=== PATIENT | female | born 1935 | race Caucasian/White ===

== ENCOUNTER 2017-11-12 15:06 | Observation (INO) | payer OTHER, MEDICARE ==
[~2017-11-12] VITALS: Ht 154.9 cm; Wt 78.3 kg
--- NOTE | 2017-11-12 16:00 | DIAGNOSTIC IMAGING REPORT ---
CHEST ONE VIEW PORTABLE CLINICAL HISTORY: Altered mental status and weakness. COMPARISON STUDY: No previous studies for comparison. FINDINGS: There is marked elevation right hemidiaphragm. The heart is normal in size. There is no failure. There is no focal pulmonary consolidation. There are no pleural effusions. Chronic changes involve the right humeral head.[ IMPRESSION: Elevated right hemidiaphragm. No focal pulmonary consolidation. No evidence of failure. Electronically signed by: Tho Reyna M.D. 11/12/2017 3:59 PM Dictated Date/Time: 11/12/2017 3:58 PM
[2017-11-12 16:08] LABS: BASO % 0.5 %; BASO ABS # 0.03 K/uL (0-0.2); EOS % 8.6 %; EOS ABS # 0.51 K/uL (0-0.5); HEMATOCRIT 37.6 % (37-47); HEMOGLOBIN 13.3 g/dL (12.0-16.0); IG# 0.02 K/uL (0.00-0.02); LYMPH % 43.9 %; LYMPH ABS # 2.61 K/uL (1.2-3.4); MEAN CELL VOLUME 93.5 fL (80-100); MEAN CORPUSCULAR HEMOGLOBIN 33.1 pg (25-34); MEAN CORPUSCULAR HGB CONC 35.4 g/dl (32-36); MEAN PLATELET VOLUME 10.3 fL (7.4-10.4); MONO % 6.9 %; MONO ABS # 0.41 K/uL (0.11-0.59); NEUT % 39.8 %; NEUT ABS # 2.37 K/uL (1.4-6.5); PLATELET COUNT 303 K/uL (130-400); RED CELL DISTRIBUTION WIDTH CV 13.5 % (11.5-14.5); RED CELL DISTRIBUTION WIDTH SD 46.3 fL (36.4-46.3); WHITE BLOOD COUNT 5.95 K/uL (4.8-10.8)
[2017-11-12 16:18] LABS: PTT PATIENT 23.7 SECONDS (21.0-31.0)
[2017-11-12] MEDS ORDERED: FENO160T PO (16:21)
[2017-11-12] MEDS ORDERED: DONE1TAB25 PO (16:21)
[2017-11-12] MEDS ORDERED: LEVO75TA5 PO (16:21)
[2017-11-12] MEDS ORDERED: METO100T14 PO (16:21)
[2017-11-12] MEDS ORDERED: GABA-112 PO ×2 (16:21)
[2017-11-12] MEDS ORDERED: FLUT0.15 (16:21)
[2017-11-12] MEDS ORDERED: CYAN10005 PO (16:21)
[2017-11-12] MEDS ORDERED: CETI10TA84 PO (16:21)
[2017-11-12] MEDS ORDERED: FRS/40 PO (16:21)
--- NOTE | 2017-11-12 16:34 | DIAGNOSTIC IMAGING REPORT ---
HEAD WITHOUT CONTRAST (CT) CLINICAL HISTORY: 82 years-old Female with EVALUATE ALTERED MENTAL STATUS/WEAKNESS. Acute weakness with altered mental status TECHNIQUE: Multiple axial CT images of the head were obtained without contrast. A dose lowering technique was utilized adhering to the principles of ALARA. CT DOSE: 537.48 mGy.cm COMPARISON: None. FINDINGS: No acute intracranial hemorrhage, midline shift, intracranial mass, hydrocephalus, territorial ischemia or abnormal extra-axial collection. Moderate atrophy with ex vacuo ventriculomegaly. Senescent calcifications of the lentiform nuclei. Moderate ill-defined low-attenuation about the subcortical, deep and periventricular white matter suggests chronic microvascular ischemic changes. Cerebral vascular calcifications are noted. The calvarium is intact. Mastoid air cells and middle ear cavities are clear. 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 Mild mucosal thickening of the ethmoid air cells. Soft tissues and orbits are unremarkable. Prior bilateral cataract repair. 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 IMPRESSION: 1. No acute intracranial abnormality. 2. Atrophy with chronic microvascular ischemic changes. 3. Mild ethmoid sinus disease. The above report was generated using voice recognition software. It may contain grammatical, syntax or spelling errors. Electronically signed by: Fernandez Arias M.D. 11/12/2017 4:33 PM Dictated Date/Time: 11/12/2017 4:31 PM
[2017-11-12 16:35] LABS: ALBUMIN 4.1 gm/dl (3.4-5.0); ALKALINE PHOSPHATASE 54 U/L (45-117); ALT/SGPT 26 U/L (12-78); AST/SGOT 23 U/L (15-37); BLOOD UREA NITROGEN 23 mg/dl (7-18); CALCIUM 10.5 mg/dl (8.5-10.1); CARBON DIOXIDE 30 mmol/L (21-32); CREATININE 1.58 mg/dl (0.60-1.20); GLUCOSE 110 mg/dl (70-99); POTASSIUM 4.4 mmol/L (3.5-5.1); SODIUM 140 mmol/L (136-145); TOTAL PROTEIN 7.5 gm/dl (6.4-8.2)
--- NOTE | 2017-11-12 18:16 | EMERGENCY ROOM VISIT NOTE ---
History Report prepared by Tima: Tameka Roberson Under the Supervision of: Dr. Ulises Hopper M.D. First contact with patient: 15:22 Chief Complaint: SHORTNESS OF BREATH Stated Complaint: SOB, BAD HEART VALVE, CONFUSION,HYPERTENSION,DIZZY History of Present Illness The patient is an 82 year old female who presents to the Emergency Room with a referral from her physical therapy office today. The patient states that she was at physical therapy for her balance because she has a tendency to fall down. Per family, the patient did not know how to ride a bike properly at physical therapy. The patient states that she was only able to pedal backwards and states that she had to really focus to pedal forwards. Per family, the patient has not been acting like herself in the past 4 days. The family states that she has had worsening shortness of breath, dizziness, and troubles with her balance. Per family, she used to be able to climb 15 stairs before she became short of breath, but states that she is currently unable to walk a short distance without becoming short of breath. The patient denies having fevers, urinary symptoms, coughing more than usual, vomiting, or diarrhea. The patient states that a doctor that she saw in [place] prescribed her medication to help with her forgetfulness. She states that this medication has been helping the forgetfulness. 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 Her family states that she has an appointment with Dr. Do on November [address] Solis on November 19. Source of History: patient, family Onset: today Position: other (generalized) Quality: other (referral) Associated Symptoms: + SOB, + weakness (dizzines, trouble with balance, confusion), No fevers, No chills, No cough (more than usual), No vomiting, No diarrhea, No urinary symptoms Review of Systems See HPI for pertinent positives & negatives. A total of 10 systems reviewed and were otherwise negative. Past Medical & Surgical Medical Problems: (1) Faulty mitral valve Family History Patient reports no known family medical history. Social History Smoking Status: Former Smoker Marital Status: Housing Status: lives with family Current/Historical Medications Scheduled Cyanocobalamin (Vitamin B-12), 1 TAB PO DAILY Donepezil Hydrochloride (Donepezil Hcl), 5 MG PO DAILY Fenofibrate (Tricor), 160 MG PO DAILY Fluticasone Propionate (Nasal) (Flonase Allergy Relief), 1 SPRAY NA DAILY Furosemide (Lasix), 40 MG PO DAILY Gabapentin (Neurontin), 100 MG PO QAM Gabapentin (Neurontin), 200 MG PO QPM Levothyroxine Sodium (Levothyroxine Sodium), 75 MCG PO DAILY Metoprolol Tartrate (Lopressor) (Lopressor), 100 MG PO DAILY Scheduled PRN Cetirizine (Zyrtec), 10 MG PO DAILY PRN for ALLERGY SYMPTOMS Allergies Coded Allergies: Aspirin (Unverified Adverse Reaction, Severe, RASH, 11/12/17) Physical Exam Vital Signs Date Time Temp Pulse Resp B/P (MAP) Pulse Ox O2 Delivery O2 Flow Rate FiO2 11/12/17 16:53 78 16 175/85 98 Room Air 11/12/17 15:42 96 Room Air 11/12/17 15:09 36.4 82 21 177/98 96 Room Air Physical Exam GENERAL: Patient is in no acute distress. HEENT: No acute trauma, normocephalic atraumatic, mucous membranes moist, no nasal congestion, no scleral icterus. NECK: No stridor, no adenopathy, no meningismus, trachea is midline. LUNGS: Clear to auscultation bilaterally, no wheeze, no rhonchi, breath sounds equal. HEART: Somewhat irregular. Mildly tachycardic. No obvious murmur. ABDOMEN: Soft, nontender, bowel sounds positive, no hernias, no peritonitis. EXTREMITIES: No cyanosis or edema, full range of motion of all the joints without pain or difficulty, no signs for acute trauma. NEUROLOGIC: Oriented x 3, no acute motor or sensory deficits, no focal weakness. Hand tremor noted bilaterally. No facial droop or speech slur. No pronator drift or cerebellar dysfunction. SKIN: No rash, no jaundice, no diaphoresis. Medical Decision & Procedures ER Provider Diagnostic Interpretation: Radiology results as stated below per my review and radiologist interpretation: HEAD WITHOUT CONTRAST (CT) CLINICAL HISTORY: 82 years-old Female with EVALUATE ALTERED MENTAL STATUS/WEAKNESS. Acute weakness with altered mental status TECHNIQUE: Multiple axial CT images of the head were obtained without contrast. A dose lowering technique was utilized adhering to the principles of ALARA. CT DOSE: 537.48 mGy.cm COMPARISON: None. FINDINGS: No acute intracranial hemorrhage, midline shift, intracranial mass, hydrocephalus, territorial ischemia or abnormal extra-axial collection. Moderate atrophy with ex vacuo ventriculomegaly. Senescent calcifications of the lentiform nuclei. Moderate ill-defined low-attenuation about the subcortical, deep and periventricular white matter suggests chronic microvascular ischemic changes. Cerebral vascular calcifications are noted. The calvarium is intact. Mastoid air cells and middle ear cavities are clear. 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 Mild mucosal thickening of the ethmoid air cells. Soft tissues and orbits are unremarkable. Prior bilateral cataract repair. 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 IMPRESSION: 1. No acute intracranial abnormality. 2. Atrophy with chronic microvascular ischemic changes. 3. Mild ethmoid sinus disease. The above report was generated using voice recognition software. It may contain grammatical, syntax or spelling errors. Electronically signed by: Fernandez Arias M.D. 11/12/2017 4:33 PM Dictated Date/Time: 11/12/2017 4:31 PM CHEST ONE VIEW PORTABLE CLINICAL HISTORY: Altered mental status and weakness. COMPARISON STUDY: No previous studies for comparison. FINDINGS: There is marked elevation right hemidiaphragm. The heart is normal in size. There is no failure. There is no focal pulmonary consolidation. There are no pleural effusions. Chronic changes involve the right humeral head.[ IMPRESSION: Elevated right hemidiaphragm. No focal pulmonary consolidation. No evidence of failure. Electronically signed by: Tho Reyna M.D. 11/12/2017 3:59 PM Dictated Date/Time: 11/12/2017 3:58 PM Laboratory Results 11/12/17 15:50 Red Blood Count 4.02, Mean Corpuscular Volume 93.5, Mean Corpuscular Hemoglobin 33.1, Mean Corpuscular Hemoglobin Concent 35.4, Mean Platelet Volume 10.3, Neutrophils (%) (Auto) 39.8, Lymphocytes (%) (Auto) 43.9, Monocytes (%) (Auto) 6.9, Eosinophils (%) (Auto) 8.6, Basophils (%) (Auto) 0.5, Neutrophils # (Auto) 2.37, Lymphocytes # (Auto) 2.61, Monocytes # (Auto) 0.41, Eosinophils # (Auto) 0.51, Basophils # (Auto) 0.03 11/12/17 15:50 Test 11/12/17 15:25 11/12/17 15:50 Urine Color DK YELLOW Urine Appearance CLOUDY (CLEAR) Urine pH 5.0 (4.5-7.5) Urine Specific [place] 1.029 (1.000-1.030) Urine Protein NEG (NEG) Urine Glucose (UA) NEG (NEG) Urine Ketones TRACE (NEG) Urine Occult Blood NEG (NEG) Urine Nitrite NEG (NEG) Urine Bilirubin NEG (NEG) Urine Urobilinogen NEG (NEG) Urine Leukocyte Esterase SMALL (NEG) Urine WBC (Auto) 10-30 /hpf (0-5) Urine RBC (Auto) 0-4 /hpf (0-4) Urine Hyaline Casts (Auto) 1-5 /lpf (0-5) Urine Epithelial Cells (Auto) >30 /lpf (0-5) Urine Bacteria (Auto) NEG (NEG) White Blood Count 5.95 K/uL (4.8-10.8) Red Blood Count 4.02 M/uL (4.2-5.4) Hemoglobin 13.3 g/dL (12.0-16.0) Hematocrit 37.6 % (37-47) Mean Corpuscular Volume 93.5 fL (80-100) Mean Corpuscular Hemoglobin 33.1 pg (25-34) Mean Corpuscular Hemoglobin Concent 35.4 g/dl (32-36) Platelet Count 303 K/uL (130-400) Mean Platelet Volume 10.3 fL (7.4-10.4) Neutrophils (%) (Auto) 39.8 % Lymphocytes (%) (Auto) 43.9 % Monocytes (%) (Auto) 6.9 % Eosinophils (%) (Auto) 8.6 % Basophils (%) (Auto) 0.5 % Neutrophils # (Auto) 2.37 K/uL (1.4-6.5) Lymphocytes # (Auto) 2.61 K/uL (1.2-3.4) Monocytes # (Auto) 0.41 K/uL (0.11-0.59) Eosinophils # (Auto) 0.51 K/uL (0-0.5) Basophils # (Auto) 0.03 K/uL (0-0.2) RDW Standard Deviation 46.3 fL (36.4-46.3) RDW Coefficient of Variation 13.5 % (11.5-14.5) Immature Granulocyte % (Auto) 0.3 % Immature Granulocyte # (Auto) 0.02 K/uL (0.00-0.02) Prothrombin Time 10.6 SECONDS (9.0-12.0) Prothromb Time International Ratio 1.0 (0.9-1.1) Activated Partial Thromboplast Time 23.7 SECONDS (21.0-31.0) Partial Thromboplastin Ratio 0.9 Anion Gap 4.0 mmol/L (3-11) Est Creatinine Clear Calc Drug Dose 25.9 ml/min Estimated GFR () 34.5 Estimated GFR (Non- 29.7 BUN/Creatinine Ratio 14.4 (10-20) Calcium Level 10.5 mg/dl (8.5-10.1) Magnesium Level 2.3 mg/dl (1.8-2.4) Total Bilirubin 0.4 mg/dl (0.2-1) Aspartate Amino Transf (AST/SGOT) 23 U/L (15-37) Alanine Aminotransferase (ALT/SGPT) 26 U/L (12-78) Alkaline Phosphatase 54 U/L (45-117) Troponin I < 0.015 ng/ml (0-0.045) Total Protein 7.5 gm/dl (6.4-8.2) Albumin 4.1 gm/dl (3.4-5.0) Globulin 3.4 gm/dl (2.5-4.0) Albumin/Globulin Ratio 1.2 (0.9-2) Thyroid Stimulating Hormone (TSH) 1.390 uIu/ml (0.300-4.500) Laboratory results reviewed by me. ECG Per My Interpretation Indication: palpitations Rate (beats per minute): 80 Rhythm: sinus rhythm Findings: PAC, RBBB, other (no ST elevation, no PVCs) ED Course 1523: The patient was evaluated in room B11B. A complete history and physical exam was performed. 1630: I checked on the patient. 1724: Upon reexamination the patient is resting. I discussed results and treatment plan with the patient. She verbalizes agreement and understanding. I spoke with Dr. Hendricks of the [facility]. We discussed the patient's results and findings. The patient will be evaluated by Dr. Hendricks for further management. Medical Decision The patient is an 82 year old female who presents to the ED with complaints of weakness and confusion. Differential diagnoses considered include stroke, PR, dysrhythmia, anemia, electrolyte imbalance, infection, intracranial bleeding, and dementia. . There is no leukocytosis or concerning anemia. No significant electrolyte abnormality. The creatinine is elevated consistent with some dehydration. No hepatitis. The patient appears to be in a euthyroid state. Urinalysis does not show infection. Chest x-ray shows no pneumonia or CHF. EKG shows a sinus rhythm, no acute ischemia. Cardiac enzyme testing 1 is not consistent with acute cardiac injury. Brain CT shows no acute bleed or mass-effect. On exam, there were no focal neurologic deficits. The patient presents with confusion and change in mental status. She has had some forgetfulness in the past but in the last 4 days, her mental status has worsened. She also has been more short of breath. At this point, her workup is reassuring. I do think further testing in the hospital is warranted. A thorough stroke workup is in order. I did discuss things with the patient, I talked with the social work case manager. The on-call hospitalist was consulted. Medication Reconcilliation Current Medication List: was personally reviewed by me Blood Pressure Screening Patient's blood pressure: Elevated blood pressure will be monitored by hospitalist Consults Time Called: 1700 Consulting Physician: Dr. Hendricks- [facility] Returned Call: 1724 Discussed the patient's case. The patient will be evaluated for further management. Impression Primary Impression: Change in mental status Additional Impressions: Confusion Shortness of breath Scribe Attestation The scribe's documentation has been prepared under my direction and personally reviewed by me in its entirety. I confirm that the note above accurately reflects all work, treatment, procedures, and medical decision making performed by me. Departure Information Dispostion Being Evaluated By Hospitalist Referrals Debbie Kimble M.D. (PCP) Patient Instructions My [facility] Stroke History Time Last Known Well 4 days ago Stroke t-PA Criteria Reviewed Does NOT meet criteria for t-PA Reason t-PA Not Given Treatment not indicated Problem Qualifiers
[2017-11-12] MEDS ORDERED: PNEUMOCOCCAL POLYSACCHARIDES 25 MCG/0.5 ML VIAL/SYR IM. ONE (18:45)
[2017-11-12] MEDS ORDERED: LABETALOL HCL IV 5 MG/ML 20ML IV STA (18:48)
--- NOTE | 2017-11-12 18:52 | History and Physical ---
History & Physical Date & Time of Service: Nov 12, 2017 at 18:48 Chief Complaint: Sob, Bad Heart Valve, Confusion,Hypertension,Dizzy Primary Care Physician: Debbie Kimble M.D. History of Present Illness Source: patient, family 82 yo female with multiple complaints which appear to be chronic. Patient today was not herself. She has been battling with episodes of worsening confusion for past 4-6 months. She has been evaluated by Neurology in [place] in AUGUST prior to moving here. She states that they found some abnormal imaging on MRI which was mild cognitive dysfunction. However, today when she went to physical therapy, she was unable to pedal the bike. She felt like there was a disconnect from her body. Physical therapy evaluated her BP and noticed systolic was above 170. On another note, patient has been short of breath upon exertion. But this appears to have been ongoing for months now, her grand daughter states this is normal for the patient. But other family members state that today they noticed a change with her symptoms and worsening fo her SOB. Past Medical/Surgical History PAST MEDICAL HISTORY: 1. Hypertension. 2. Confusion, potentially related to hypertensive encephalopathy. 3. Hyperdynamic left ventricular systolic function. 4. No evidence of significant mitral valve disease. 5. Benign tremor. 6. Chronic small vessel disease by MRI. 7. Hypothyroidism. 8. Right bundle branch block. Family History Patient reports no known family medical history. No premature coronary heart disease. Social History SOCIAL HISTORY: She is . She stopped smoking 30 years ago. She is currently living with her family. Smoking Status: Former Smoker Smokeless Tobacco Use: No Alcohol Use: none Drug Use: none Marital Status: Housing status: lives with family Immunizations History of Influenza Vaccine: Unknown History of Tetanus Vaccine?: Unknown History of Pneumococcal: Unknown History of Hepatitis B Vaccine: Unknown Allergies Coded Allergies: Aspirin (Unverified Adverse Reaction, Severe, RASH, 11/12/17) Home Medications Scheduled Amlodipine Besylate (Amlodipine Besylate), 5 MG PO QAM Cyanocobalamin (Vitamin B-12), 1 TAB PO DAILY Donepezil Hydrochloride (Donepezil Hcl), 5 MG PO DAILY Fenofibrate (Tricor), 160 MG PO DAILY Fluticasone Propionate (Nasal) (Flonase Allergy Relief), 1 SPRAY NA DAILY Gabapentin (Neurontin), 100 MG PO QAM Gabapentin (Neurontin), 200 MG PO QPM Levothyroxine Sodium (Levothyroxine Sodium), 75 MCG PO DAILY Metoprolol Tartrate (Metoprolol Tartrate), 100 MG PO BID Scheduled PRN Cetirizine (Zyrtec), 10 MG PO DAILY PRN for ALLERGY SYMPTOMS Review of Systems Constitutional: No fever, No chills Eyes: No worsening of vision ENT: No hearing loss Respiratory: No cough Cardiovascular: No chest pain Abdomen: No pain Neurologic: + memory loss, + weakness, + balance problems Psychiatric: No depression symptoms Endocrine: No fatigue Hematologic / Lymphatic: No abnormal bleeding/bruising Integumentary: No rash Allergic / Immunologic: No environmental allergies Physical Exam Vital Signs Date Time Temp Pulse Resp B/P (MAP) Pulse Ox O2 Delivery O2 Flow Rate FiO2 11/12/17 16:53 78 16 175/85 98 Room Air 11/12/17 15:42 96 Room Air 11/12/17 15:09 36.4 82 21 177/98 96 Room Air General Appearance: WD/WN Head: normocephalic Eyes: normal inspection ENT: normal ENT inspection Neck: supple, no adenopathy Respiratory/Chest: chest non-tender, lungs clear Cardiovascular: regular rate, rhythm, no edema Abdomen/GI: normal bowel sounds, non tender, soft Back: normal inspection Extremities/Musculoskelatal: normal inspection Neurologic/Psych: chief executive officer II-XII nml as tested, no motor/sensory deficits, alert, oriented x 3 Skin: normal color Lymphatic: no adenopathy Diagnostics Laboratory Results Results Past 24 Hours Test 11/12/17 15:25 11/12/17 15:50 Range/Units Urine Color DK YELLOW Urine Appearance CLOUDY CLEAR Urine pH 5.0 4.5-7.5 Urine Specific [place] 1.029 1.000-1.030 Urine Protein NEG NEG Urine Glucose (UA) NEG NEG Urine Ketones TRACE NEG Urine Occult Blood NEG NEG Urine Nitrite NEG NEG Urine Bilirubin NEG NEG Urine Urobilinogen NEG NEG Urine Leukocyte Esterase SMALL NEG Urine WBC (Auto) 10-30 0-5 /hpf Urine RBC (Auto) 0-4 0-4 /hpf Urine Hyaline Casts (Auto) 1-5 0-5 /lpf Urine Epithelial Cells (Auto) >30 0-5 /lpf Urine Bacteria (Auto) NEG NEG White Blood Count 5.95 4.8-10.8 K/uL Red Blood Count 4.02 4.2-5.4 M/uL Hemoglobin 13.3 12.0-16.0 g/dL Hematocrit 37.6 37-47 % Mean Corpuscular Volume 93.5 80-100 fL Mean Corpuscular Hemoglobin 33.1 25-34 pg Mean Corpuscular Hemoglobin Concent 35.4 32-36 g/dl Platelet Count 303 130-400 K/uL Mean Platelet Volume 10.3 7.4-10.4 fL Neutrophils (%) (Auto) 39.8 % Lymphocytes (%) (Auto) 43.9 % Monocytes (%) (Auto) 6.9 % Eosinophils (%) (Auto) 8.6 % Basophils (%) (Auto) 0.5 % Neutrophils # (Auto) 2.37 1.4-6.5 K/uL Lymphocytes # (Auto) 2.61 1.2-3.4 K/uL Monocytes # (Auto) 0.41 0.11-0.59 K/uL Eosinophils # (Auto) 0.51 0-0.5 K/uL Basophils # (Auto) 0.03 0-0.2 K/uL RDW Standard Deviation 46.3 36.4-46.3 fL RDW Coefficient of Variation 13.5 11.5-14.5 % Immature Granulocyte % (Auto) 0.3 % Immature Granulocyte # (Auto) 0.02 0.00-0.02 K/uL Prothrombin Time 10.6 9.0-12.0 SECONDS Prothromb Time International Ratio 1.0 0.9-1.1 Activated Partial Thromboplast Time 23.7 21.0-31.0 SECONDS Partial Thromboplastin Ratio 0.9 Sodium Level 140 136-145 mmol/L Potassium Level 4.4 3.5-5.1 mmol/L Chloride Level 105 98-107 mmol/L Carbon Dioxide Level 30 21-32 mmol/L Anion Gap 4.0 3-11 mmol/L Blood Urea Nitrogen 23 7-18 mg/dl Creatinine 1.58 0.60-1.20 mg/dl Est Creatinine Clear Calc Drug Dose 25.9 ml/min Estimated GFR () 34.5 Estimated GFR (Non- 29.7 BUN/Creatinine Ratio 14.4 10-20 Random Glucose 110 70-99 mg/dl Calcium Level 10.5 8.5-10.1 mg/dl Magnesium Level 2.3 1.8-2.4 mg/dl Total Bilirubin 0.4 0.2-1 mg/dl Aspartate Amino Transf (AST/SGOT) 23 15-37 U/L Alanine Aminotransferase (ALT/SGPT) 26 12-78 U/L Alkaline Phosphatase 54 45-117 U/L Troponin I < 0.015 0-0.045 ng/ml Total Protein 7.5 6.4-8.2 gm/dl Albumin 4.1 3.4-5.0 gm/dl Globulin 3.4 2.5-4.0 gm/dl Albumin/Globulin Ratio 1.2 0.9-2 Thyroid Stimulating Hormone (TSH) 1.390 0.300-4.500 uIu/ml Microbiology Results 11/12/17 Urine Culture, Received Pending Diagnostic Radiology CHEST ONE VIEW PORTABLE CLINICAL HISTORY: Altered mental status and weakness. COMPARISON STUDY: No previous studies for comparison. FINDINGS: There is marked elevation right hemidiaphragm. The heart is normal in size. There is no failure. There is no focal pulmonary consolidation. There are no pleural effusions. Chronic changes involve the right humeral head.[ IMPRESSION: Elevated right hemidiaphragm. No focal pulmonary consolidation. No evidence of failure. EKG Sinus rhythm with Premature atrial complexes Right bundle branch block Abnormal ECG No previous ECGs available Impression Assessment and Plan Hypertensive emergency in 82 yo female with h/o mild ognitive dysfunction, peripheral neuropathy, mitral valve prolapse 1) HTN emergency with acute renal failure Patient has mildly elevated creatinine will monitor BMP. will give labetalol 5 mg iv x1 will monitor BP. goal is to decrease by 25% 2)mild cognitve dysfunction with an acute episode of confusion in AM appears to be a chronic issue. which is gradually worsening. will consult neuro will hold on MRI as patient recently had MRI done as an outaptient. family will bring disc in before 8am tomorrow so Neurologist can take a look at it. 3)SOB on exertion This also appears to be chronic but patient was very sob today. will obtain BNP. will obtain echo. will continue home meds. 4) Essential hypertension Will continue home meds BP elevated as noted above 5) hyPOTHYROIDISM CONTINUE HOME MEDS as noted above. 6)Peripheral neuropathy Continue gabapentin DVT proph: hep Advanced Directives Existing Advance Directive: No Existing Living Will: No Existing Power of Manager Private: No Existing Health Care Proxy: No Resuscitation Status VTE Prophylaxis Will order VTE Prophylaxis: Yes Social Service Consult None Apply
[2017-11-12] MEDS ORDERED: IV FLUIDS COMPLETED PRN (19:45)
[2017-11-12 20:00] VITALS: BP 174/70; PULSE 74; TEMP 36.8; O2SAT 95; Ht 154.9 cm; Wt 78.3 kg
[2017-11-12] MEDS ORDERED: PNEUMOCOCCAL ADMINISTRATION CHARGE ONE (20:00)
[2017-11-12] MEDS ORDERED: GABAPENTIN 100 MG CAP PO SCH (21:00)
[2017-11-12] MEDS: HEPARIN SOD 5000 UNIT/0.5 ML CARP SQ SCH (21:18)
[2017-11-12 23:49] VITALS: BP 186/60; PULSE 81; TEMP 37.2; O2SAT 96
[2017-11-13 00:33] VITALS: O2SAT 95
[2017-11-13 04:30] VITALS: BP 173/81; PULSE 81; TEMP 36.9; O2SAT 94
[2017-11-13] MEDS ORDERED: LEVOTHYROXINE 75 MCG TAB PO SCH (06:30)
[2017-11-13 07:24] VITALS: BP 161/77; PULSE 85; TEMP 36.9; O2SAT 93
[2017-11-13] MEDS: HEPARIN SOD 5000 UNIT/0.5 ML CARP SQ SCH (08:25)
--- NOTE | 2017-11-13 08:54 | Neurology Consultation ---
Neurology Consultation Date of Consultation: Nov 13, 2017. Attending Physician: Tom Hendricks M.D. Primary Care Physician: Debbie Kimble M.D. Reason for Consultation: Worsening confusion, history of dementia History of Present Illness Source: patient, hospital records The patient is an 82-year-old female who was referred by her physical therapist yesterday as she was having considerable difficulty battling a stationary bicycle. She was able to pedal backwards but required considerable mental effort to pedal forwards. The patient does admit that she has been having difficulty with her gait imbalance for quite some time which is why she has been enrolled in physical therapy. She recently moved to the [facility] and had previously been following with a neurologist in [place] for mild cognitive impairment and gait dysfunction. The patient reports that she has been having some difficulty with memory and simple computations recently which has provoked a moderate degree of distress as she has previously been very good with numbers. She did have a brain MRI completed while in [place] and was started on a low dose of donepezil. Her family has brought in a CD ROM and report for my review. In fact, she has an outpatient consultation scheduled with me in about 1 week. The MRI report suggests mild to moderate generalized atrophy with associated periventricular and subcortical ischemic atherosclerotic [place]. There are some ischemic changes within the [place] as well. 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 A CT of the head completed in the emergency department revealed considerable generalized atrophy with associated ex vacuo ventriculomegaly as well as chronic microvascular ischemic change. I reviewed the images as well as the radiologist's interpretation of this test. Electrocardiogram revealed a sinus rhythm, 80 beats per minute, with PACs. A CBC is within normal limits. Comprehensive metabolic panel was generally unremarkable. Past Medical/Surgical History Medical Problems: (1) Change in mental status Status: Acute (2) Confusion Status: Acute (3) Shortness of breath Status: Acute Family History Noncontributory in light of patient's advanced age. Social History Recently moved to [place] from [place] as described in the history of present illness. Marital Status: Housing Status: lives with family Allergies Coded Allergies: Aspirin (Unverified Adverse Reaction, Severe, RASH, 11/12/17) Current Inpatient Medications Current Inpatient Medications Medications (Trade) Dose Ordered Sig/Mary Route Start Time Stop Time Status Last Admin Dose Admin Heparin Sodium (Porcine) (Heparin Sq 5000 Unit/0.5ml) 5,000 unit Q12 SQ 11/12/17 21:00 12/12/17 20:59 11/13/17 08:25 5,000 UNIT Cyanocobalamin (Vitamin B-12 Tab) 1,000 mcg DAILY PO 11/13/17 09:00 12/13/17 08:59 11/13/17 08:21 1,000 MCG Gabapentin (Neurontin Cap) 100 mg QAM PO 11/13/17 09:00 12/13/17 08:59 11/13/17 08:21 100 MG Gabapentin (Neurontin Cap) 200 mg QPM PO 11/12/17 21:00 12/12/17 20:59 11/12/17 21:16 200 MG Levothyroxine Sodium (Synthroid Tab) 75 mcg DAILYBB PO 11/13/17 06:30 12/13/17 06:59 11/13/17 05:59 75 MCG Metoprolol Tartrate (Lopressor Tab) 100 mg DAILY PO 11/13/17 09:00 12/13/17 08:59 11/13/17 08:20 100 MG Donepezil HCl (Aricept Tab) 5 mg DAILY PO 11/13/17 09:00 12/13/17 08:59 11/13/17 08:21 5 MG Fenofibrate (Tricor Tab) 145 mg DAILY PO 11/13/17 09:00 12/13/17 08:59 11/13/17 08:20 145 MG Miscellaneous (Iv Fluids Completed) 1 ea PRN PRN N/A 11/12/17 19:45 11/12/18 19:44 Review of Systems Constitutional: No fever chills Eyes: No vision loss or diplopia ENT: No vertigo or hearing loss Cardiovascular: No chest pain or palpitations, has complained of some dizziness Respiratory: No cough or shortness of breath Musculoskeletal: No myalgia Neurological: As per history of present illness A full 10 point review of systems was obtained from this patient with pertinent positives and negatives described in the history of present illness and otherwise listed above. All remaining systems were reviewed and are negative. Physical Exam Vital Signs (Past 24 Hrs): Date Time Temp Pulse Resp B/P (MAP) Pulse Ox O2 Delivery O2 Flow Rate FiO2 11/13/17 07:24 36.9 85 18 161/77 (105) 93 Room Air 11/13/17 04:30 36.9 81 20 173/81 (111) 94 Room Air 11/13/17 00:33 95 Room Air 11/12/17 23:49 37.2 81 18 186/60 (102) 96 Room Air 11/12/17 20:00 36.8 74 18 174/70 95 Room Air 11/12/17 19:23 79 18 157/76 96 11/12/17 19:02 81 18 194/103 96 Room Air 11/12/17 16:53 78 16 175/85 98 Room Air 11/12/17 15:42 96 Room Air 11/12/17 15:09 36.4 82 21 177/98 96 Room Air The patient is a well-developed, well-nourished elderly female. She is alert and fully oriented. Recent and remote memory are intact. Attention and concentration are normal. Patient exhibits a normal spontaneous speech pattern as well as an age-appropriate fund of knowledge. Visual salgado full to confrontation. Visual acuity normal. Pupils equal round reactive to light and accommodation. Eye movements normal. Facial sensation intact. There is no facial droop or weakness. Hearing intact. Palate elevates to midline. Shoulder shrug intact. Tongue protrudes to midline. Sensation intact to all modalities in all 4 limbs. Deep tendon reflexes are diminished throughout. Plantar responses equivocal. There is no dysdiadochokinesia or dysmetria of [id number] or heel to mckeon bilaterally. Ophthalmoscopic examination reveals normal-appearing optic discs and posterior segments. No papilledema or hemorrhages. Carotid pulses normal bilaterally, no bruits to auscultation. Gait is slow. Patient takes short shuffling steps. Stance is mildly wide- based. Patient exhibits normal muscle strength and tone for all 4 limbs. No atrophy. Patient exhibits a mild to moderate bilateral postural tremor. Laboratory Results Past 24 Hours: 11/12/17 15:50 Red Blood Count 4.02, Mean Corpuscular Volume 93.5, Mean Corpuscular Hemoglobin 33.1, Mean Corpuscular Hemoglobin Concent 35.4, Mean Platelet Volume 10.3, Neutrophils (%) (Auto) 39.8, Lymphocytes (%) (Auto) 43.9, Monocytes (%) (Auto) 6.9, Eosinophils (%) (Auto) 8.6, Basophils (%) (Auto) 0.5, Neutrophils # (Auto) 2.37, Lymphocytes # (Auto) 2.61, Monocytes # (Auto) 0.41, Eosinophils # (Auto) 0.51, Basophils # (Auto) 0.03 11/12/17 15:50 Test 11/12/17 15:25 11/12/17 15:50 Urine Color DK YELLOW Urine Appearance CLOUDY (CLEAR) Urine pH 5.0 (4.5-7.5) Urine Specific [place] 1.029 (1.000-1.030) Urine Protein NEG (NEG) Urine Glucose (UA) NEG (NEG) Urine Ketones TRACE (NEG) Urine Occult Blood NEG (NEG) Urine Nitrite NEG (NEG) Urine Bilirubin NEG (NEG) Urine Urobilinogen NEG (NEG) Urine Leukocyte Esterase SMALL (NEG) Urine WBC (Auto) 10-30 /hpf (0-5) Urine RBC (Auto) 0-4 /hpf (0-4) Urine Hyaline Casts (Auto) 1-5 /lpf (0-5) Urine Epithelial Cells (Auto) >30 /lpf (0-5) Urine Bacteria (Auto) NEG (NEG) White Blood Count 5.95 K/uL (4.8-10.8) Red Blood Count 4.02 M/uL (4.2-5.4) Hemoglobin 13.3 g/dL (12.0-16.0) Hematocrit 37.6 % (37-47) Mean Corpuscular Volume 93.5 fL (80-100) Mean Corpuscular Hemoglobin 33.1 pg (25-34) Mean Corpuscular Hemoglobin Concent 35.4 g/dl (32-36) Platelet Count 303 K/uL (130-400) Mean Platelet Volume 10.3 fL (7.4-10.4) Neutrophils (%) (Auto) 39.8 % Lymphocytes (%) (Auto) 43.9 % Monocytes (%) (Auto) 6.9 % Eosinophils (%) (Auto) 8.6 % Basophils (%) (Auto) 0.5 % Neutrophils # (Auto) 2.37 K/uL (1.4-6.5) Lymphocytes # (Auto) 2.61 K/uL (1.2-3.4) Monocytes # (Auto) 0.41 K/uL (0.11-0.59) Eosinophils # (Auto) 0.51 K/uL (0-0.5) Basophils # (Auto) 0.03 K/uL (0-0.2) RDW Standard Deviation 46.3 fL (36.4-46.3) RDW Coefficient of Variation 13.5 % (11.5-14.5) Immature Granulocyte % (Auto) 0.3 % Immature Granulocyte # (Auto) 0.02 K/uL (0.00-0.02) Prothrombin Time 10.6 SECONDS (9.0-12.0) Prothromb Time International Ratio 1.0 (0.9-1.1) Activated Partial Thromboplast Time 23.7 SECONDS (21.0-31.0) Partial Thromboplastin Ratio 0.9 Anion Gap 4.0 mmol/L (3-11) Est Creatinine Clear Calc Drug Dose 25.9 ml/min Estimated GFR () 34.5 Estimated GFR (Non- 29.7 BUN/Creatinine Ratio 14.4 (10-20) Calcium Level 10.5 mg/dl (8.5-10.1) Magnesium Level 2.3 mg/dl (1.8-2.4) Total Bilirubin 0.4 mg/dl (0.2-1) Aspartate Amino Transf (AST/SGOT) 23 U/L (15-37) Alanine Aminotransferase (ALT/SGPT) 26 U/L (12-78) Alkaline Phosphatase 54 U/L (45-117) Troponin I < 0.015 ng/ml (0-0.045) Pro-B-Type Natriuretic Peptide 292 pg/ml (0-1800) Total Protein 7.5 gm/dl (6.4-8.2) Albumin 4.1 gm/dl (3.4-5.0) Globulin 3.4 gm/dl (2.5-4.0) Albumin/Globulin Ratio 1.2 (0.9-2) Thyroid Stimulating Hormone (TSH) 1.390 uIu/ml (0.300-4.500) Impression Age-related mild cognitive impairment with elements of atrophy and cerebral vascular disease on recent imaging. I do not strongly suspect Alzheimer's disease in this patient in spite of the evidence of amyloid angiopathy on the previously completed brain MRI done in [place] in May of this year. Nonetheless , early or mild Alzheimer's disease possible. 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 Imaging not suggestive of normal pressure hydrocephalus. Although this patient has a bilateral postural tremor. She does not really have clinical signs suggestive of Parkinson's disease. Plan Would obtain a brain MRI to further exclude an acute or subacute infarct given this patient's reported acute change in lower extremity motor control resulting in inability to correctly pedal a bicycle. Patient may continue with donepezil 5 mg at bedtime for treatment of her mild cognitive impairment. Patient may continue with physical therapy for gait apraxia. There are no specific pharmacologic interventions for this issue although some individuals may benefit with a low dose of levodopa. I may consider a low dose Sinemet trial after I have assessed her in the outpatient setting next week. Please contact me if I may be of further assistance.
[2017-11-13] MEDS ORDERED: FENOFIBRATE 145 MG TAB PO SCH (09:00)
[2017-11-13] MEDS ORDERED: FENOFIBRATE 48 MG TAB PO SCH (09:00)
[2017-11-13] MEDS ORDERED: FUROSEMIDE 40 MG TAB PO SCH (09:00)
[2017-11-13] MEDS ORDERED: GABAPENTIN 100 MG CAP PO SCH (09:00)
[2017-11-13] MEDS ORDERED: METOPROLOL TARTRATE 100 MG TAB PO SCH ×2 (09:00→21:00)
[2017-11-13] MEDS ORDERED: DONEPEZIL HCL 5 MG TAB PO SCH (09:00)
[2017-11-13] MEDS ORDERED: CYANOCOBALAMIN 500 MCG TAB (VIT B-12) PO SCH (09:00)
--- NOTE | 2017-11-13 09:42 | ECHOCARDIOGRAM REPORT ---
*NOTICE TO RECEIVING DEMOCRAT AGENCY This information is strictly Confidential and protected under [place] law. [place] law prohibits you from making any further disclosure of this information unless further disclosure is expressly permitted by the written consent of the person to whom it pertains or is authorized by law. A general authorization for the release of medical or other information is not sufficient for this purpose. Hospital accepts no responsibility if the information is made available to any other person, INCLUDING THE PATIENT. Interpretation Summary * Name: BRANDY BRITTNEY Study Date: 11/13/2017 08:22 AM BP: 173/81 mmHg * Patient Location: [facility] HR: 81 * : 1935 (M/d/yyyy) Gender: Female Height: 62 in * Age: 82 yrs Ethnicity: CA Weight: 175 lb * Ordering Physician: Tom Hendricks * Performed By: Angie Contreras RDCS * * Reason For Study: MURMURS * BSA: 1.8 m2 * -- Conclusions -- * The left ventricular cavity is small. * The basal septum is thickened and angulated consistent with sigmoid septum. * Ejection Fraction = >70 %. * The left ventricle is hyperdynamic. * Can not exclude a mid cavitary gradient (Doppler is inadequate) * The left ventricular wall motion is normal. * The right ventricle is normal in size and function. * Aortic valve sclerosis mild, without significant aortic valvular stenosis. * Grade I diastolic dysfunction, (abnormal relaxation pattern). Procedure Details * A complete two-dimensional transthoracic echocardiogram was performed (2D, M-mode, Doppler and color flow Doppler). Left Ventricle * The left ventricular cavity is small. * The basal septum is thickened and angulated consistent with sigmoid septum. * Ejection Fraction = >70 %. * The left ventricle is hyperdynamic. * Can not exclude a mid cavitary gradient (Doppler is inadequate) * The left ventricular wall motion is normal. Right Ventricle * The right ventricle is normal in size and function. Atria * The left atrium is mildly dilated. * Right atrium not well visualized. Mitral Valve * The mitral valve is grossly normal. * There is trace mitral regurgitation. Tricuspid Valve * The tricuspid valve is not well visualized, but is grossly normal. * There is trace tricuspid regurgitation. Aortic Valve * Aortic valve sclerosis mild, without significant aortic valvular stenosis. * Trace aortic regurgitation. Pulmonic Valve * The pulmonic valve is not well visualized. Great Vessels * The aortic root is normal size. Pericardium/Pleural * Trivial pericardial effusion. Great Vessels * IVC not seen Left Ventricular Diastolic Function * Grade I diastolic dysfunction, (abnormal relaxation pattern). MMode 2D Measurements and Calculations IVSd 1.7 cm IVSs 1.6 cm LVIDd 4.6 cm LVIDs 3.4 cm LVPWd 0.79 cm LVPWs 1.6 cm IVS/LVPW 2.1 FS 26.5 % EDV(Teich) 98.1 ml ESV(Teich) 47.1 ml EF(Teich) 52.0 % EDV(cubed) 98.4 ml ESV(cubed) 39.0 ml EF(cubed) 60.4 % % IVS thick -1.10 % % LVPW thick 97.3 % LV mass(C)d 212.2 grams LV mass(C)dI 117.5 grams/m\S\2 LV mass(C)s 206.0 grams LV mass(C)sI 114.1 grams/m\S\2 SV(Teich) 51.0 ml SI(Teich) 28.2 ml/m\S\2 SV(cubed) 59.4 ml SI(cubed) 32.9 ml/m\S\2 ACS 1.3 cm LA dimension 3.2 cm asc Aorta Diam 3.2 cm LVOT diam 1.5 cm LVOT area 1.7 cm\S\2 LVAd ap4 21.2 cm\S\2 LVLd ap4 6.9 cm EDV(MOD-sp4) 55.0 ml EDV(sp4-el) 55.4 ml LVAs ap4 10.1 cm\S\2 LVLs ap4 5.1 cm ESV(MOD-sp4) 17.6 ml ESV(sp4-el) 17.1 ml EF(MOD-sp4) 67.9 % EF(sp4-el) 69.1 % LVAd ap2 20.1 cm\S\2 LVLd ap2 6.7 cm EDV(MOD-sp2) 50.3 ml EDV(sp2-el) 50.8 ml LVAs ap2 10.6 cm\S\2 LVLs ap2 5.4 cm ESV(MOD-sp2) 17.6 ml ESV(sp2-el) 17.6 ml EF(MOD-sp2) 65.0 % EF(sp2-el) 65.3 % LVLd %diff -2.03 % EDV(MOD-bp) 53.3 ml LVLs %diff 6.0 % ESV(MOD-bp) 17.1 ml EF(MOD-bp) 67.9 % SV(MOD-sp4) 37.3 ml SI(MOD-sp4) 20.7 ml/m\S\2 SV(MOD-sp2) 32.7 ml SI(MOD-sp2) 18.1 ml/m\S\2 SV(MOD-bp) 36.2 ml SI(MOD-bp) 20.0 ml/m\S\2 SV(sp4-el) 38.3 ml SI(sp4-el) 21.2 ml/m\S\2 SV(sp2-el) 33.1 ml SI(sp2-el) 18.4 ml/m\S\2 Doppler Measurements and Calculations MV E max demar 66.3 cm/sec MV A max demar 111.1 cm/sec MV E/A 0.60 MV dec time 0.27 sec Ao V2 max 136.3 cm/sec Ao max PG 7.4 mmHg Ao max PG (full) 3.0 mmHg LANDON(V,A) 1.3 cm\S\2 LANDON(V,D) 1.3 cm\S\2 AI max demar 398.8 cm/sec AI max PG 63.6 mmHg AI dec slope 159.0 cm/sec\S\2 AI P1/2t 734.8 msec LV V1 max PG 4.4 mmHg LV V1 max 105.2 cm/sec PA V2 max 90.1 cm/sec PA max PG 3.2 mmHg
[2017-11-13] MEDS ORDERED: AMLODIPINE BESYLATE 5 MG TAB PO SCH (10:00)
[2017-11-13 10:06] LABS: HEMATOCRIT 37.4 % (37-47); HEMOGLOBIN 13.2 g/dL (12.0-16.0); MEAN CELL VOLUME 93.7 fL (80-100); MEAN CORPUSCULAR HEMOGLOBIN 33.1 pg (25-34); MEAN CORPUSCULAR HGB CONC 35.3 g/dl (32-36); PLATELET COUNT 227 K/uL (130-400); RED CELL DISTRIBUTION WIDTH CV 13.5 % (11.5-14.5); RED CELL DISTRIBUTION WIDTH SD 46.4 fL (36.4-46.3); WHITE BLOOD COUNT 5.96 K/uL (4.8-10.8)
[2017-11-13 10:28] LABS: BLOOD UREA NITROGEN 21 mg/dl (7-18); CALCIUM 10.7 mg/dl (8.5-10.1); CARBON DIOXIDE 25 mmol/L (21-32); CREATININE 1.29 mg/dl (0.60-1.20); GLUCOSE 133 mg/dl (70-99); POTASSIUM 4.1 mmol/L (3.5-5.1); SODIUM 138 mmol/L (136-145)
[2017-11-13 11:12] VITALS: BP 169/81; PULSE 64; TEMP 36.5; O2SAT 96
--- NOTE | 2017-11-13 11:21 | CARDIOLOGY CONSULTATION ---
DATE OF CONSULTATION: 11/13/2017 REQUESTING: Dr. Hendricks. [employer] TEACHER: Braulio Yung DO, [facility]. REASON FOR CONSULTATION: Shortness of breath, hypertensive urgency, confusion. Dear Dr. Hendricks: Thank you for requesting cardiology consultation on September with regard to her accelerated hypertension and likely hypertensive encephalopathy. As you know, she is a very feisty 82-year-old female who has moved from [place] to live with her son-in-law and daughter. Her a year ago. Her granddaughter was living with her, but has returned to [place] to get her Ph.D. September notes that she can walk with a walker. She does have some gait instability. She notes she has had a fall in the shower. She describes some mild chronic shortness of breath. She denies any palpitations or fluttering or feeling her heart racing. She denies any chest pain, chest pressure, or chest heaviness. She notes occasional lower extremity edema at the end of the day. She denies any presyncope, syncope, cough, or productive sputum. Her appetite is stable. Her weight is stable. She denies any bleeding, bruising, dark stools, or black stools. She sleeps on 1-2 pillows chronically. Yesterday, she was at physical therapy and she notes when she was asked to ride a bike, she was actually pushing the paddles backwards and was confused. Her admission blood pressure was 177/98 and vel to 194/103 at 7:00 p.m. She notes she does have high blood pressure and she is on high-dose Toprol. She does not check her blood pressure on a regular basis. In addition to her confusion yesterday, they noted that she has had more confusion over the last couple of months, especially in the last 4 days. REVIEW OF SYSTEMS: Rest of review of systems otherwise negative. PAST MEDICAL HISTORY: 1. Hypertension. 2. Confusion, potentially related to hypertensive encephalopathy. 3. Hyperdynamic left ventricular systolic function. 4. No evidence of significant mitral valve disease. 5. Benign tremor. 6. Chronic small vessel disease by MRI. 7. Hypothyroidism. 8. Right bundle branch block. SOCIAL HISTORY: She is . She stopped smoking 30 years ago. She is currently living with her family. FAMILY HISTORY: Noncontributory. ALLERGIES: ASPIRIN. MEDICATIONS: Reviewed in electronic medical record. PHYSICAL EXAMINATION: GENERAL: She is awake, alert, oriented x3. She is in no acute distress. She has a wonderful sense of humor. VITAL SIGNS: Her heart rate is 81, respirations 18, blood pressure 161/77, her sats 93%. HEENNT: 2+ carotid upstrokes, no evidence of carotid bruits. Jugular venous pressure appeared normal. Sclerae is anicteric. Hearing is normal. LUNGS: Clear to auscultation bilaterally. No rales, rhonchi, or wheezing. HEART: Regular rate and rhythm. No appreciable murmurs, rubs, or gallops. There is occasional ectopy. ABDOMEN: Soft, nontender, nondistended. Positive bowel sounds. EXTREMITIES: No clubbing, cyanosis, or edema. Trace bilateral lower extremity edema. PSYCHIATRIC: Affect appeared appropriate. EKG: Sinus rhythm with PACs and a right bundle branch block. Echocardiogram: Hyperdynamic left ventricular systolic function. Cannot rule out a mid cavitary gradient, thickening of the basal septum. No significant mitral valve disease. Trace aortic insufficiency with aortic valve sclerosis. LABORATORY STUDIES: Sodium 140, potassium 4.4, BUN 23, creatinine 1.58. TSH is normal. Her troponins are negative. Her proBNP is normal. IMPRESSION: 1. Confusion, potentially secondary to hypertensive encephalopathy. 2. Accelerated hypertension. 3. Hyperdynamic left ventricular systolic function with a possible mid cavitary gradient as a cause for her dyspnea. 4. Small vessel disease on her MRI along with amyloid deposition without evidence of an acute stroke. 5. Right bundle branch block. As was discussed with Dr. Hendricks, I would try to slow her heart rate down. We will have to confirm her dose of metoprolol. She described taking it twice a day at home where here it is only prescribed once a day. I would try to slow her heart rate into the 60s if possible. This will allow for increased diastolic filling and hopefully less shortness of breath. In addition, it will help with her mid cavitary gradient. I would avoid diuretics as this will only make her hyperdynamic function worse and increase her shortness of breath. I would add amlodipine 5 mg to her medical regimen. This will help drop her systemic vascular resistance and increase forward stroke volume and also help her shortness of breath. This can be up titrated as an outpatient. We will have to watch for any worsening lower extremity edema. I did not start an JUAN DIEGO or an ARB given her chronic kidney disease and her age. There is no evidence of an acute coronary syndrome and based on her BNP, she is not in heart failure. If her blood pressure is improved this afternoon after a dose of amlodipine this morning, she could be discharged home. She is already scheduled to see me Friday in the office. She should keep that appointment.
[2017-11-13 11:54] VITALS: BP 164/94; PULSE 75
--- NOTE | 2017-11-13 11:56 | DIAGNOSTIC IMAGING REPORT ---
BRAIN COMBO CLINICAL HISTORY: memory loss, gait apraxia COMPARISON STUDY: CT 11/12/2017. TECHNIQUE: Utilizing a 1.5 Paz magnet and dedicated coil, multiplanar, multiecho imaging of the brain was performed pre and postcontrast administration. IV administration of 8 mL of Gadavist contrast was uneventful. FINDINGS: Findings of generalized atrophy and chronic small vessel change. Small vessel changes similar compared to the prior study with multiple foci of increased signal within the periventricular deep white matter regions. Diffusion images are considered negative for an acute ischemic process. There is mild compensatory prominence of the ventricular system. There is no significant postcontrast enhancement. IMPRESSION: 1. No acute intracranial abnormality. 2. Generalized atrophy. 3. Considerable chronic small vessel change throughout both cerebral hemispheres 4. No evidence for an acute ischemic insult. The above report was generated using voice recognition software. It may contain grammatical, syntax or spelling errors. Electronically signed by: Perico Yanez M.D. 11/13/2017 11:54 AM Dictated Date/Time: 11/13/2017 11:51 AM
[2017-11-13] MEDS ORDERED: NRV5 PO (13:33)
[2017-11-13] MEDS ORDERED: LPR100 PO (13:33)
--- NOTE | 2017-11-13 13:41 | Discharge Instructions ---
Discharge Instructions Date of Service Nov 13, 2017. Admission Reason for Admission: Hypertensive Emergency, No Chf Discharge Discharge Diagnosis / Problem: Hypertensive Mergency/ with possible hypertensive encephalopathy Discharge Goals Goal(s): Decrease discomfort, Improve function Activity Recommendations Activity Limitations: resume your previous activity . Instructions / Follow-Up Instructions / Follow-Up Will followup with Neurology and Cardiology next week. ok to resume physical therapy. Current Hospital Diet Patient's current hospital diet: AHA Diet (Heart Healthy) Discharge Diet Recommended Diet: AHA Diet (Heart Healthy) Pending Studies Studies pending at discharge: no Medical Emergencies . Who to Call and When: Medical Emergencies: If at any time you feel your situation is an emergency, please call 911 immediately. . Non-Emergent Contact Non-Emergency issues call your: Primary Care Provider Call Non-Emergent contact if: you have any medication questions . . "Provider Documentation" section prepared by Tom Hendricks. .
[2017-11-13 13:57] VITALS: BP 164/94; PULSE 75; TEMP 36.5; O2SAT 96
--- NOTE | 2017-11-13 13:57 | Discharge Summary ---
Discharge Summary Date of Service Nov 13, 2017. Discharge Summary Admission Date: Nov 12, 2017 at 18:46 Discharge Date: Nov 13, 2017 Discharge Disposition: Home Principal Diagnosis: Hypertnesive encephalopathy with hypertensive emrgency Immunizations: Have You Had Influenza Vaccine: Unknown History of Tetanus Vaccine?: Unknown History of Pneumococcal: Unknown History of Hepatitis B Vaccine: Unknown Medication Reconciliation New Medications: Amlodipine Besylate (Amlodipine Besylate) 5 Mg Tab 5 MG PO QAM for 30 Days, #30 TAB Metoprolol Tartrate (Metoprolol Tartrate) 100 Mg Tab 100 MG PO BID for 30 Days, #60 TAB Continued Medications: Cetirizine (Zyrtec) 10 Mg Tab 10 MG PO DAILY PRN for ALLERGY SYMPTOMS Cyanocobalamin (Vitamin B-12) 1,000 Mcg Tab 1 TAB PO DAILY Donepezil Hydrochloride (Donepezil Hcl) 5 Mg Tab 5 MG PO DAILY Fenofibrate (Tricor) 160 Mg Tab 160 MG PO DAILY Fluticasone Propionate (Nasal) (Flonase Allergy Relief) 50 Mcg/Act Spr 1 SPRAY NA DAILY Gabapentin (Neurontin) 100 Mg Cap 100 MG PO QAM Gabapentin (Neurontin) 100 Mg Cap 200 MG PO QPM Levothyroxine Sodium (Levothyroxine Sodium) 75 Mcg Tab 75 MCG PO DAILY Discontinued Medications: Furosemide (Lasix) 40 Mg Tab 40 MG PO DAILY Metoprolol Tartrate (Lopressor) (Lopressor) 100 Mg Tab 100 MG PO DAILY Discharge Exam Physical exam: General Appearance: WD/WN Head: normocephalic Eyes: normal inspection ENT: normal ENT inspection Neck: supple, no adenopathy Respiratory/Chest: chest non-tender, lungs clear Cardiovascular: regular rate, rhythm, no edema Abdomen/GI: normal bowel sounds, non tender, soft Back: normal inspection Extremities/Musculoskelatal: normal inspection Neurologic/Psych: sign hanger II-XII nml as tested, no motor/sensory deficits, alert, oriented x 3 Skin: normal color Lymphatic: no adenopathy Review of Systems: Constitutional: No fever Eyes: No worsening of vision ENT: No hearing loss Respiratory: No cough Cardiovascular: No chest pain Abdomen: No pain Musculoskeletal: No joint pain Neurologic: No memory loss Psychiatric: No depression symptoms Endocrine: No fatigue Hematologic / Lymphatic: No abnormal bleeding/bruising Integumentary: No rash Hospital Course Hypertensive emergency in 82 yo female with h/o mild ognitive dysfunction, peripheral neuropathy, mitral valve prolapse 1) HTN emergency with acute renal failure Increased metoprolol to bid as HR was in the 80s And patient has hyperdynamic state. Decreasing hr will improve diastolic filling And added amlodipine on day of discharge Due to elevated creatinine, patient will no longer be on lasix. was given labetalol 5 mg iv x1 at time of admission 2)mild cognitve dysfunction with an acute episode of confusion in AM Likely hypertensive encephalopathy This appears to be improving on day of discharge will monitor MRI of brain was negative. appears to to have chronic component will see neurologist again on discharge 3)SOB on exertion/ chronic diastolic cardiac dysfunction (heart failure) will monitor. will hold diuretic and will continue BB as noted above. 4) Essential hypertension Will continue home meds 5) hyPOTHYROIDISM CONTINUE HOME MEDS as noted above. 6)Peripheral neuropathy Continue gabapentin DVT proph: hep Total Time Spent: Greater than 30 minutes This includes examination of the patient, discharge planning, medication reconciliation, and communication with other providers. Discharge Instructions Please refer to the electronic Patient Visit Report (Discharge Instructions) for additional information. Additional Copies To Debbie Kimble M.D.
== END 2017-11-13 14:16 | disposition home or self-care (01) ==
LOC: C.EDB 15:08 → C.MED 18:46 → ENRESERV 19:15
PROVIDERS: ADMIT Internal Medicine Sports Medicine; ATTEND Internal Medicine Sports Medicine
DX: I67.4 Hypertensive encephalopathy (principal); I16.1 Hypertensive emergency; G31.84 Mild cognitive impairment of uncertain or unknown etiology; I34.1 Nonrheumatic mitral (valve) prolapse; E03.9 Hypothyroidism, unspecified; R06.02 Shortness of breath; I45.10 Unspecified right bundle-branch block; Z79.899 Other long term (current) drug therapy; Z79.82 Long term (current) use of aspirin; Z87.891 Personal history of nicotine dependence; Z88.6 Allergy status to analgesic agent

== ENCOUNTER 2020-03-05 13:16 | Inpatient (IN) ==
--- NOTE | 2020-03-05 13:45 | XRay Report ---
XR chest 1V portable CLINICAL HISTORY: Atypical chest pain COMPARISON STUDY: 07/01/2018 FINDINGS: The cardiac and mediastinal contours remain stable. There is marked elevation right hemidia phragm. There is no failure. There is no focal pulmonary consolidation. There are no pleural effusion s. There is a chronic deformity of the right shoulder.[ IMPRESSION: No active disease in the chest. ACT 112: Negative or not required by law. Electronically signed by: Tho Reyna M.D. 03/05/2020 1:44 PM
--- NOTE | 2020-03-05 13:46 | XRay Report ---
XR ankle RT min 3V routine CLINICAL HISTORY: Right ankle pain status post trauma COMPARISON: Right foot x-ray dated 01/01/2018 DISCUSSION: No acute fractures or dislocations are visualized. There is calcaneal spurring. There is mild lateral soft tissue swelling. There is a corticated bony density adjacent the medial malleolus. This is felt to be old. IMPRESSION: No acute fractures or dislocations identified. ACT 112: Negative or not required by law. Electronically signed by: Tho Reyna M.D. 03/05/2020 1:45 PM
--- NOTE | 2020-03-05 14:01 | Emergency Department Note ---
Impression & Plan Acute lower GI bleeding, Weakness, Right ankle sprain ED Provider Note NAME: BRITTNEY NAVA AGE: 84 SEX: F : 1935 ARRIVES VIA: Ambulance INFORMANT: Patient, ED PROVIDER(S): Eduardo Russo DO CHIEF COMPLAINT: Rectal bleeding HPI: The patient is an 84-year-old female who presented to the emergency department for an evaluation. The patient was brought here by ambulance. She noticed that she was having some abdominal cramping but then started having some rectal bleeding. The patient states that she had diarrhea that initially had food stuff and then was followed by some dark red stool. She initially thought it was something that she had eaten. So she went about her day. She states that she started noticing abdominal cramping again went to the bathroom. This time she was unable to get off the toilet. When she went it off the toilet she slumped to the floor injuring her right ankle. She could not get off the floor and 911 was called to help her for a lift assist. The patient states that she was unable to stand because of pain in her ankle but also then was noted to have bright red blood per rectum. She states her symptoms are mildly improved at this time. She denies having any chest pain. She denies having any abdominal pain or difficulty breathing. She is had no fevers. She states that she is not had similar symptoms in the past. She does not currently take anticoagulation. ROS: See above HPI for pertinent positives & negatives. A total of 10 systems reviewed and were otherwise negative. PAST MEDICAL HISTORY: See Below PAST SURGICAL HISTORY: See Below FAMILY HISTORY: See Below SOCIAL HISTORY: See Below HOME MEDICATIONS: See Below ALLERGIES: See Below VITALS: See Below PHYSICAL EXAMINATION: GENERAL: Patient is awake alert in no acute distress patient is resting comfortably and showing no signs of anxiety EYES: The conjunctivae are clear. The pupils are round and reactive. EARS, NOSE, MOUTH AND THROAT: The nose is without any evidence of any deformity. Mucous membranes are moist. Tongue is midline. NECK: The neck is nontender and supple. RESPIRATORY: Normal respiratory effort is noted there is no evidence of wheezing rhonchi or rales CARDIOVASCULAR: Regular rate and rhythm noted there no murmurs rubs or gallops normal S1 normal S2. GASTROINTESTINAL: The abdomen is soft and nondistended. Rectal exam revealed gross blood per rectum. MUSCULOSKELETAL/EXTREMITIES: There is no evidence of gross deformity full range of motion is noted in the hips and shoulders. There is palpable tenderness over the lateral aspect of the right ankle. SKIN: There is no obvious evidence of any rash. There are no petechiae, pallor or cyanosis noted. NEUROLOGIC: Patient is awake alert and oriented x3. Strength was symmetric but diminished. MEDICAL DECISION MAKING: The patient is an 84-year-old female who presented to the emergency department for an evaluation of lower GI bleeding. The patient did not have an acute surgical abdomen by physical exam. Rectal exam showed gross blood per rectum. I discussed the patient's laboratory and radiographic studies with her. She also injured her right ankle when she fell to the floor. There is no acute fracture or dislocation noted in ankle x-ray. The patient was reevaluated multiple times. She does have a history of pulmonary edema so I did not give her significant fluids. Initial vital signs and hemoglobin were stable. Given the patient's age and comorbidities I do not feel the patient would do well as an outpatient. She was reevaluated multiple times. Triage Nursing notes reviewed. Prior medical records reviewed Vital Signs: reviewed and remarkable for hypertension Differential diagnosis: Diverticulosis, AVM, coagulopathy, colitis, inflammatory bowel disease, malignancy, Rhiannon-Skinner tear, esophagitis, peptic ulcer disease, variceal bleed, gastritis, epistaxis, fissure, hemorrhoids, as well as other pathologies. ER treatment provided: See below Diagnostics interpreted by me: ECG: EKG was obtained in the emergency department. My interpretation is normal sinus rhythm at 72 bpm. There is no ectopy. There is no acute ST segment abnormalities noted. This was compared to a tracing from July 092018. No significant changes were noted. Cardiac Monitoring: An order was placed for continuous cardiac monitoring. The monitor shows a rate of 75 bpm with sinus rhythm. Laboratory studies: As stated above and show below. Imaging studies: See below Consultation(s): 1500: I discussed this case with Dr. Lira. He is on-call for the [facility] hospitalist group. He will evaluate the patient in the emergency department for further management and disposition. Past Med/Surg History Medical History (Updated 03/05/20 @ 14:20 by Eduardo Russo DO) CHF (congestive heart failure) HTN (hypertension) Tremor Vertigo Surgical History H/O sinus surgery History of parathyroid surgery No pertinent past surgical history Family History Mother Malignant neoplasm of vagina Father Skin cancer Sister Cataract Grandfather Black lung disease Grandfather Black lung disease Other Family history non-contributory Social History Smoking Status: Former smoker Feels Safe at Home: Yes Allergies Allergies Allergy/AdvReac Type Severity Reaction Status Date / Time aspirin AdvReac Severe RASH Unverified 09/17/19 11:09 Home Meds Home Medications Medication Instructions Recorded Confirmed amlodipine 5 mg PO QAM 07/01/18 09/17/19 levothyroxine 75 mg PO DAILY 07/01/18 09/17/19 meloxicam 7.5 mg PO DAILY 07/01/18 09/17/19 cyanocobalamin (vitamin B-12) 500 PO .TAKE 1 TABLET DAILY. tab 10/29/18 09/17/19 mcg tablet duloxetine 30 mg capsule,delayed PO cap 10/29/18 09/17/19 release metoprolol tartrate 100 mg tablet PO .TAKE 1 TABLET TWICE tab 10/29/18 09/17/19 buspirone 5 mg tablet 5 mg PO BID 01/29/19 09/17/19 fluticasone propionate 50 1 sprays INTNAS DAILY 01/29/19 09/17/19 mcg/actuation nasal spray,suspension furosemide 40 mg tablet 20 mg PO DAILY tab 01/29/19 09/17/19 gabapentin 100 mg capsule 100 mg PO .COMPLEX cap 01/29/19 09/17/19 Previous Rx's Medication Instructions Recorded meclizine 25 mg PO TID PRN #10 tab 07/01/18 carbidopa 25 mg-levodopa 100 mg 1 tab PO QID 90 Days #360 tab 11/02/19 tablet donepezil 5 mg tablet 5 mg PO DAILY 90 Days #90 tab 01/19/20 Results & Data (ED) Vital Signs Vital Signs - 24 hr 03/05/20 13:30 03/05/20 13:31 03/05/20 14:00 Temperature 36.8 C Temperature Source Oral Pulse Rate 81 72 70 Pulse Rate from SpO2 Sensor 70 70 Respiratory Rate 20 18 20 Blood Pressure 165/78 H 165/78 H 160/94 H Blood Pressure Mean 109 107 114 Pulse Oximetry 95 97 Oxygen Delivery Method Room Air Sepsis Recent Fever Within 48 Hours No Sepsis New/Unexplained Change in Mental Status N/A Sepsis Action Taken by Nursing No Action Required 03/05/20 14:13 03/05/20 14:14 Temperature Temperature Source Pulse Rate 69 Pulse Rate from SpO2 Sensor 69 Respiratory Rate 16 Blood Pressure 159/78 H Blood Pressure Mean 106 Pulse Oximetry 99 97 Oxygen Delivery Method Room Air Sepsis Recent Fever Within 48 Hours Sepsis New/Unexplained Change in Mental Status Sepsis Action Taken by Assisted Medications Current Medication List: was personally reviewed by me Laboratory Data Attestation: I reviewed the patient's lab results. Result diagrams: 03/05/20 13:55 03/05/20 13:55 Lab Results 03/05/20 03/05/20 03/05/20 Range/Units 13:53 13:55 13:55 WBC 12.04 H (4.8-10.8) K/uL RBC 4.49 (4.2-5.4) M/uL Hgb 14.9 (12.0-16.0) g/dL Hct 42.1 (37-47) % MCV 93.8 (80-100) fL MCH 33.2 (25-34) pg MCHC 35.4 (32-36) g/dL RDW Std Deviation 46.0 (36.4-46.3) fL RDW Coeff of Aysha 13.4 (11.5-14.5) % Plt Count 302 (130-400) K/uL MPV 10.3 (7.4-10.4) fL Immature Gran % (Auto) 0.2 % Neut % (Auto) 78.9 % Lymph % (Auto) 12.5 % [place] % (Auto) 7.0 % Eos % (Auto) 1.3 % Baso % (Auto) 0.1 % Neut # (Auto) 9.49 H (1.4-6.5) K/uL Lymph # (Auto) 1.51 (1.2-3.4) K/uL [place] # (Auto) 0.84 H (0.11-0.59) K/uL Eos # (Auto) 0.16 (0-0.5) K/uL Baso # (Auto) 0.01 (0-0.2) K/uL Immature Gran # (Auto) 0.03 H (0.00-0.02) K/uL PT 10.6 (9.0-12.0) Seconds INR 1.0 (0.9-1.1) APTT 25.0 (21.0-31.0) Seconds PTT Ratio 0.9 Sodium (136-145) mmol/L Potassium (3.5-5.1) mmol/L Chloride (98-107) mmol/L Carbon Dioxide (21-32) mmol/L Anion Gap (3-11) BUN (7-18) mg/dl Creatinine (0.6-1.2) mg/dl Est Cr Clr Drug Dosing ml/min Est GFR ( Amer) Est GFR (Non-Af Amer) BUN/Creatinine Ratio (10-20) Glucose (70-99) mg/dl Calcium (8.5-10.1) mg/dl Total Bilirubin (0.2-1) mg/dl AST (15-37) U/L ALT (12-78) U/L Alkaline Phosphatase (45-117) U/L Troponin I (0-0.045) ng/ml Total Protein (6.4-8.2) gm/dl Albumin (3.4-5.0) gm/dl Globulin (2.5-4.0) gm/dl Albumin/Globulin Ratio (0.9-2) Lipase (73-393) U/L SARS-CoV-2 Ag (Rapid) Negative (Negative) Blood Type Antibody Screen 03/05/20 03/05/20 Range/Units 13:55 13:58 WBC (4.8-10.8) K/uL RBC (4.2-5.4) M/uL Hgb (12.0-16.0) g/dL Hct (37-47) % MCV (80-100) fL MCH (25-34) pg MCHC (32-36) g/dL RDW Std Deviation (36.4-46.3) fL RDW Coeff of Aysha (11.5-14.5) % Plt Count (130-400) K/uL MPV (7.4-10.4) fL Immature Gran % (Auto) % Neut % (Auto) % Lymph % (Auto) % [place] % (Auto) % Eos % (Auto) % Baso % (Auto) % Neut # (Auto) (1.4-6.5) K/uL Lymph # (Auto) (1.2-3.4) K/uL [place] # (Auto) (0.11-0.59) K/uL Eos # (Auto) (0-0.5) K/uL Baso # (Auto) (0-0.2) K/uL Immature Gran # (Auto) (0.00-0.02) K/uL PT (9.0-12.0) Seconds INR (0.9-1.1) APTT (21.0-31.0) Seconds PTT Ratio Sodium 136 (136-145) mmol/L Potassium 4.1 (3.5-5.1) mmol/L Chloride 101 (98-107) mmol/L Carbon Dioxide 31 (21-32) mmol/L Anion Gap 4.0 (3-11) BUN 17 (7-18) mg/dl Creatinine 1.26 H (0.6-1.2) mg/dl Est Cr Clr Drug Dosing 30.8 ml/min Est GFR ( Amer) 44.7 Est GFR (Non-Af Amer) 38.5 BUN/Creatinine Ratio 13.1 (10-20) Glucose 128 H (70-99) mg/dl Calcium 9.4 (8.5-10.1) mg/dl Total Bilirubin 1.1 H (0.2-1) mg/dl AST 18 (15-37) U/L ALT 10 L (12-78) U/L Alkaline Phosphatase 54 (45-117) U/L Troponin I < 0.015 (0-0.045) ng/ml Total Protein 8.3 H (6.4-8.2) gm/dl Albumin 4.2 (3.4-5.0) gm/dl Globulin 4.1 H (2.5-4.0) gm/dl Albumin/Globulin Ratio 1.0 (0.9-2) Lipase 278 (73-393) U/L SARS-CoV-2 Ag (Rapid) (Negative) Blood Type A Positive Antibody Screen NEGATIVE Imaging Data Radiologist's Impression: Patient: BRANDYSEPTEMBER Admit Date: 03/05/20 MR#: [id number] Address1: [address] Acct ID:[id number] Address2: Date: 1935 [facility] Zip: [place] [address] Age: 84 Location: ED Sex: F Room/Bed: Att Phy: Diagnosis: ANKLE PAIN Caroline Phy: Roberta Contreras PA-C Service Date: 03/05/20 [facility] Phy: Interpreting Phy: Tho Reyna MD Admit Phy: Ordering Phy: Eduardo Russo DO cc: ~ XR chest 1V portable CLINICAL HISTORY: Atypical chest pain COMPARISON STUDY: 07/01/2018 FINDINGS: The cardiac and mediastinal contours remain stable. There is marked elevation right hemidiaphragm. There is no failure. There is no focal pulmonary consolidation. There are no pleural effusions. There is a chronic deformity of the right shoulder.[ IMPRESSION: No active disease in the chest. ACT 112: Negative or not required by law. Electronically signed by: Tho Reyna M.D. 03/05/2020 1:44 PM Dictated: 03/05/20 1343 Transcribed: 03/05/20 1343 Patient: BRITTNEY NAVA Admit Date: 03/05/20 MR#: [id number] Address1: [address] Acct ID:[id number] Address2: Date: 1935 [facility] Zip: [place] [address] Age: 84 Location: ED Sex: F Room/Bed: Att Phy: Diagnosis: ANKLE PAIN Caroline Phy: Roberta Contreras PA-C Service Date: 03/05/20 [facility] Phy: Interpreting Phy: Tho Reyna MD Admit Phy: Ordering Phy: Eduardo Russo DO cc: ~ XR ankle RT min 3V routine CLINICAL HISTORY: Right ankle pain status post trauma COMPARISON: Right foot x-ray dated 01/01/2018 DISCUSSION: No acute fractures or dislocations are visualized. There is calca kateryna spurring. There is mild lateral soft tissue swelling. There is a corticated bony density adjacent the medial malleolus. This is felt to be old. IMPRESSION: No acute fractures or dislocations identified. ACT 112: Negative or not required by law. Electronically signed by: Tho Reyna M.D. 03/05/2020 1:45 PM Dictated: 03/05/20 1344 Transcribed: 03/05/20 1344 Blood Pressure Blood Pressure Findings: Elevated blood pressure Blood Pressure Disposition: further management by hospitalist Discharge Plan Visit Data Chief Complaint: Rectal Bleed ED Provider: Eduardo Russo Discharge Problem: Acute lower GI bleeding, Weakness, Right ankle sprain Forms Stand Alone Forms: [facility] Prescriptions Prescriptions: No Action carbidopa-levodopa 25-100 mg tablet 1 tab PO QID 90 Days Qty: 360 RF: 1 donepezil 5 mg tablet 5 mg PO DAILY 90 Days Qty: 90 RF: 1 duloxetine 30 mg capsule,delayed release(DR/EC) PO RF: 0 cyanocobalamin (vitamin B-12) 500 mcg tablet PO .TAKE 1 TABLET DAILY. RF: 0 metoprolol tartrate 100 mg tablet PO .TAKE 1 TABLET TWICE RF: 0 gabapentin 100 mg capsule 100 mg PO .COMPLEX RF: 0 buspirone 5 mg tablet 5 mg PO BID RF: 0 fluticasone propionate [Flonase Allergy Relief] 50 mcg/actuation spray,suspension 1 sprays INTNAS DAILY RF: 0 amlodipine 5 mg tablet 5 mg PO QAM RF: 0 levothyroxine 75 mcg tablet 75 mg PO DAILY RF: 0 meloxicam 7.5 mg tablet 7.5 mg PO DAILY RF: 0 meclizine 25 mg tablet 25 mg PO TID PRN (Reason: dizziness) Qty: 10 RF: 0 furosemide 40 mg tablet 20 mg PO DAILY RF: 0 Referrals Referrals: Roberta Contreras PA-C [Primary Care Provider] - Discharge Problem: Right ankle sprain Qualifiers: Encounter type: initial encounter Involved ligament of ankle: unspecified ligament Qualified Code(s): S93.401A - Sprain of unspecified ligament of right ankle, initial encounter
[2020-03-05 14:14] LABS: Basophils # (auto) 0.01 K/uL (0-0.2); Basophils % (auto) 0.1 %; Eosinophils # (auto) 0.16 K/uL (0-0.5); Eosinophils % (auto) 1.3 %; Hematocrit (blood only) 42.1 % (37-47); Hemoglobin 14.9 g/dL (12.0-16.0); Immature Granulocytes # (auto) 0.03 K/uL (0.00-0.02); Immature Granulocytes % (auto) 0.2 %; Lymphocytes # (auto) 1.51 K/uL (1.2-3.4); Lymphocytes % (auto) 12.5 %; Mean Corpuscular Hemoglobin 33.2 pg (25-34); Mean Corpuscular Hgb Conc 35.4 g/dL (32-36); Mean Corpuscular Volume 93.8 fL (80-100); Mean Platelet Volume 10.3 fL (7.4-10.4); Monocytes # (auto) 0.84 K/uL (0.11-0.59); Neutrophils # (auto) 9.49 K/uL (1.4-6.5); Neutrophils % (auto) 78.9 %; Platelet Count 302 K/uL (130-400); RDW Coefficient of Variation 13.4 % (11.5-14.5); Red Blood Count 4.49 M/uL (4.2-5.4); White Blood Count 12.04 K/uL (4.8-10.8)
[2020-03-05 14:28] LABS: Partial Thromboplastin Ratio 0.9; Prothrombin Time 10.6 Seconds (9.0-12.0)
[2020-03-05 14:34] LABS: Alanine Aminotransferase 10 U/L (12-78); Albumin Level 4.2 gm/dl (3.4-5.0); Aspartate Aminotransferase 18 U/L (15-37); BUN Creatinine Ratio 13.1 (10-20); Blood Urea Nitrogen 17 mg/dl (7-18); Calcium 9.4 mg/dl (8.5-10.1); Carbon Dioxide 31 mmol/L (21-32); Chloride 101 mmol/L (98-107); Creatinine Clr Calc Pharmacy 30.8 ml/min; Est GFR (African American) 44.7; Est GFR (Non-African American) 38.5; Glucose 128 mg/dl (70-99); Lipase 278 U/L (73-393); Potassium 4.1 mmol/L (3.5-5.1); Sodium 136 mmol/L (136-145)
[2020-03-05 14:39] LABS: Alkaline Phosphatase 54 U/L (45-117); Bilirubin,Total 1.1 mg/dl (0.2-1); Globulin 4.1 gm/dl (2.5-4.0); Total Protein 8.3 gm/dl (6.4-8.2); Troponin I < 0.015 ng/ml (0-0.045)
--- NOTE | 2020-03-05 14:50 | History & Physical Report ---
Date of Service March 05, 2020 Assessment & Plan (1) Acute lower GI bleeding: One large volume episode of bright red blood per rectum. Hemoglobin presently stable at 14.9; higher than prior baselines. T&S sent in the ED. She had a colonoscopy about 4 years ago in [place], but does not remember any results. - Monitor H&H - GI consulted - Patient started on clear liquids - Likely no procedure inpatient, but will avoid full diet until we trend H&H (2) Weakness: Likely from GI bleeding on top of chronic issues; no focal weaknesses. - PT/OT (3) Parkinsons disease: Follows with [facility]. - Continue home carbidopa-levodopa & donepezil (4) HTN (hypertension): BP in the ED was 160/80. - Continue home amlodipine & metoprolol - Hold Lasix for now (5) CHF (congestive heart failure): Chronic diastolic heart failure; echo in 2018 shows EF > 70%. Presently appears euvolemic to mildly hypovolemic. - Gentle IV fluids - Hold Lasix; reassess daily (6) CKD (chronic kidney disease) stage 3, GFR 30-59 ml/min: Baseline Cr, ~1.1 - 1.2. Presently at baseline. - Monitor Cr - Avoid nephrotoxic meds as able (7) Hypothyroidism: TSH was 1.99 in 06/2018. No signs/symptoms of hypo-/hyperthyroidism. - Continue home Synthroid 75 mcg - Recheck TSH in the morning (8) DVT prophylaxis: SCDs - Avoid heparin for GI bleed History of Present Illness Primary Care Provider: Roberta Contreras PA-C 84yo F w/ hx of hypothyroidism, Parkinsonism who presents with bright red blood per rectum. Last night, she had dinner at her daughter's house. She had some cramping abdominal pain and an episode of diarrhea. Per patient, she had some more cramping abdominal pain this morning and sat down on the toilet. She slipped to the side and was unable to get up. She denies loss of consciousness. She called her daughter who also could not get her up. They called EMS who helped her get up. They noticed blood on the floor where she had been. ED rectal exam showed bright red blood, but no clots. She has some left ankle pain from where she fell, but x-rays were negative for acute fracture. Allergies Allergy/AdvReac Type Severity Reaction Status Date / Time aspirin AdvReac Severe RASH Unverified 03/05/20 15:00 Home Medications Medication Instructions Recorded Confirmed Type amlodipine 5 mg PO QAM 07/01/18 03/05/20 History levothyroxine 75 mg PO QAM 07/01/18 03/05/20 History meclizine 25 mg PO TID PRN #10 tab 07/01/18 03/05/20 Rx meloxicam 7.5 mg PO QAM 07/01/18 03/05/20 History cyanocobalamin (vitamin B-12) 500 500 mcg PO PM tab 10/29/18 03/05/20 History mcg tablet duloxetine 30 mg capsule,delayed 30 mg PO QAM cap 10/29/18 03/05/20 History release metoprolol tartrate 100 mg tablet 50 mg PO BID tab 10/29/18 03/05/20 History buspirone 5 mg tablet 5 mg PO BID 01/29/19 03/05/20 History fluticasone propionate 50 1 sprays INTNAS DAILY PRN 01/29/19 03/05/20 History mcg/actuation nasal spray,suspension furosemide 40 mg tablet 20 mg PO QAM tab 01/29/19 03/05/20 History gabapentin 100 mg capsule 100 - 200 mg PO BID cap 01/29/19 03/05/20 History carbidopa 25 mg-levodopa 100 mg 1 tab PO QID 90 Days #360 tab 11/02/19 03/05/20 Rx tablet cetirizine 5 mg PO PM 03/05/20 03/05/20 History donepezil 5 mg PO QAM 03/05/20 03/05/20 History Past Med/Surg History Medical History (Updated 03/05/20 @ 15:32 by Stephen Lira MD) CHF (congestive heart failure) HTN (hypertension) Tremor Vertigo Surgical History H/O sinus surgery History of parathyroid surgery No pertinent past surgical history Family History Mother Malignant neoplasm of vagina Father Skin cancer Sister Cataract Grandfather Black lung disease Grandfather Black lung disease Other Family history non-contributory Social History Smoking Status: Former smoker Hx Alcohol Use: No Hx Substance Use: No Preferred Language: [place]orese Communication Ability: Effective Beliefs That Will Affect Care: Rastafarian Rastafarian Beliefs: CHEONDOISM Current Living Situation: Family Current Living Situation Comment: GRANDDAUGHTER Other Information That Helps Us Care for You: No Feels Safe at Home: Yes Safety Concerns: Feels Safe At This Time Assistive Devices: Denture - Upper, Denture - Lower, Glasses, Hearing Aid - Bilateral and Walker Review of Systems Review of Systems: All systems reviewed & are unremarkable except as noted in HPI & below Physical Exam Constitutional: WD/WN, vitals as above Eyes: EOM intact bilaterally; no conjunctival abnormality ENMT: external ear and nose normal, oropharynx normal Neck: trachea midline, no thyromegaly normal visual inspection Respiratory: normal respiratory effort, lungs clear to auscultation no respiratory distress Cardiovascular: RRR, no murmur, no edema Gastrointestinal (Abdomen): Inspection/Auscultation: abdomen normal to inspection; abdomen not distended Musculoskeletal: no cyanosis or clubbing, extremities motor strength 5/5 Skin: no rashes, warm and dry Neurologic: moves all extremities and awake Psychiatric: Orientation: alert, oriented to person and cooperative Results & Data Results & Data ([facility]) Vital Signs (Past 12 Hours) Vital Signs Temp Pulse Resp BP Pulse Ox 03/05/20 14:14 97 03/05/20 14:13 69 16 159/78 H 99 03/05/20 14:00 70 20 160/94 H 97 03/05/20 13:31 36.8 C 72 18 165/78 H 95 03/05/20 13:30 81 20 165/78 H PG Care Time/CCT Total # of Minutes Spent Total Time Spent with Patient: Total time spent is greater than 50% in coordination of care (as documented) at patient's floor/unit and/or counseling patient: Coding Level of Care Code 38707 Initial Inpt Care Lvl 3 Diagnoses Acute lower GI bleeding K92.2 Weakness R53.1 Parkinsons disease G20 HTN (hypertension) I10 CHF (congestive heart failure) I50.9 CKD (chronic kidney disease) stage 3, GFR 30-59 ml/min N18.30 Hypothyroidism E03.9 DVT prophylaxis Z29.9
[2020-03-05] MEDS ORDERED: ONDANSETRON INJ 2 MG/ML 2 ML VIAL IV PRN (16:33)
[2020-03-05] MEDS ORDERED: NORMOSOL-R 1,000 ML IV ONE (16:45)
[2020-03-05] MEDS: CARBIDOPA/LEVODOPA 25/100MG TAB PO SCH ×2 (17:02→22:18)
[2020-03-05] MEDS ORDERED: GABAPENTIN 100 MG CAP PO SCH ×2 (21:00)
[2020-03-05] MEDS ORDERED: DONEPEZIL HCL 5 MG TAB PO SCH (21:00)
[2020-03-05] MEDS ORDERED: CETIRIZINE HCL 10 MG TABLET PO SCH (21:00)
[2020-03-05] MEDS ORDERED: CYANOCOBALAMIN 500 MCG TABLET (VITAMIN B-12) PO SCH (21:00)
[2020-03-05 21:51] LABS: Hematocrit (blood only) 39.4 % (37-47); Hemoglobin 14.1 g/dL (12.0-16.0)
[2020-03-05] MEDS: busPIRone 5 MG TAB PO SCH (22:17)
[2020-03-05] MEDS: METOPROLOL TARTRATE 50 MG TAB PO SCH (22:18)
--- NOTE | 2020-03-05 22:41 | Electrocardiogram Report ---
Test Reason : Blood Pressure : / mmHG Vent. Rate : 072 BPM Atrial Rate : 072 BPM P-R Int : 190 ms QRS Dur : 076 ms QT Int : 406 ms P-R-T Axes : -06 -12 000 degrees QTc Int : 444 ms Sinus rhythm with Premature atrial complexes Minimal voltage criteria for LVH, may be normal variant Nonspecific T wave abnormality When compared with ECG of 01-JUL-2018 04:12, Premature atrial complexes are now Present Criteria for Septal infarct are no longer Present Confirmed by Pino Asif ([id number]) on 03/05/2020 10:41:40 PM Referred By: REFERRED SELF Confirmed By:Pino Asif
[2020-03-05] MEDS: DICLOFENAC SOD 1% GEL 100 GM TUBE EXT SCH (23:47)
[2020-03-05] MEDS: ACETAMINOPHEN 325 MG TAB PO PRN (23:54)
[2020-03-06] MEDS: ACETAMINOPHEN 325 MG TAB PO PRN ×2 (04:28→08:35)
[2020-03-06 06:17] LABS: Hematocrit (blood only) 38.6 % (37-47); Hemoglobin 13.6 g/dL (12.0-16.0); Mean Corpuscular Hemoglobin 33.1 pg (25-34); Mean Corpuscular Hgb Conc 35.2 g/dL (32-36); Mean Corpuscular Volume 93.9 fL (80-100); Mean Platelet Volume 10.8 fL (7.4-10.4); Platelet Count 306 K/uL (130-400); RDW Coefficient of Variation 13.3 % (11.5-14.5); RDW Standard Deviation 45.8 fL (36.4-46.3); Red Blood Count 4.11 M/uL (4.2-5.4); White Blood Count 12.32 K/uL (4.8-10.8)
[2020-03-06 06:28] LABS: BUN Creatinine Ratio 11.8 (10-20); Calcium 8.8 mg/dl (8.5-10.1); Creatinine Clr Calc Pharmacy 36.6 ml/min; Est GFR (African American) 55.1; Est GFR (Non-African American) 47.5; Magnesium 2.1 mg/dl (1.8-2.4); Potassium 3.6 mmol/L (3.5-5.1)
[2020-03-06] MEDS ORDERED: LEVOTHYROXINE SODIUM 75 MCG TABLET PO SCH (06:30)
[2020-03-06 06:39] LABS: Thyroid Stimulating Hormone 2.79 uIu/ml (0.300-4.500)
[2020-03-06] MEDS: busPIRone 5 MG TAB PO SCH (08:29)
[2020-03-06] MEDS: CARBIDOPA/LEVODOPA 25/100MG TAB PO SCH ×2 (08:29→13:37)
[2020-03-06] MEDS: METOPROLOL TARTRATE 50 MG TAB PO SCH (08:29)
[2020-03-06] MEDS: DICLOFENAC SOD 1% GEL 100 GM TUBE EXT SCH ×2 (08:30→13:37)
[2020-03-06] MEDS ORDERED: amLODIPine BESYLATE 5 MG TAB PO SCH (09:00)
[2020-03-06] MEDS ORDERED: DULoxetine HCL 30 MG CAP PO SCH (09:00)
[2020-03-06] MEDS ORDERED: DONEPEZIL HCL 5 MG TAB PO SCH (09:00)
[2020-03-06] MEDS ORDERED: GABAPENTIN 100 MG CAP PO SCH (09:00)
--- NOTE | 2020-03-06 09:28 | Gastrointestinal Consultation ---
Date of Consultation March 06, 2020 Assessment & Plan (1) Acute lower GI bleeding: Pt is a 84 y/o female seen for LGI bleed - EMS called yesterday to help her after a fall and saw red blood around commode towel and there was blood in rectum during ED exam. Pt did have diarrhea and abd cramping [address], BN normal ,no more abd pain/cramping nor n/v since admission. Last colonoscopy 4 yrs ago in [place] normal per her report. DDx: hemorrhoidal, diverticular bleed, gastroenteritis, less likely ischemic or infectious colitis - Advanced to solid diet - If diarrhea recurs, check for infectious processes. If abd pain, consider CT abd/pelvis to r/o colitis - Defer colonoscopy eval at this time - No contraindication to DC home today if continues to do well. - GI to sign off; recall prn History of Present Illness Reason for Consultation: Lower GI Bleed Requesting Physician: Dr. Stephen Lira Attending Physician: Dr. Angie Doss History of Present Illness Pt is a 84 y/o female who is seen today for LGI bleeding. She reports having diarrhea 2 days ago and saw food particles like salad, lasagna. Saw red tinge on rectum when wiping then but unsure if it's blood or red sauce from lasagna. She did have "gas cramps" prior to having BM but denies other associated symptoms such as fever, chills, n/v. Yesterday she slipped when going to commode and sprained R ankle. When EMS was called to help get her up, they saw red blood around commode towel. In ED, she had rectal exam which revealed bright red blood. She was admitted then. Blood ct remains normal. BUN normal. She denies any more abd pain, n/v, or BM since admitted. She is tolerating CL diet well She denies hx of colorectal ca, IBD in family She denies NSAIDs uses or new meds including recent antibx She used to get routine colonoscopy in [place], last done 4 yrs ago, normal per her report. Allergies Allergy/AdvReac Type Severity Reaction Status Date / Time aspirin AdvReac Severe RASH Unverified 03/05/20 15:00 Home Medications Medication Instructions Recorded Confirmed Type amlodipine 5 mg PO QAM 07/01/18 03/05/20 History levothyroxine 75 mg PO QAM 07/01/18 03/05/20 History meclizine 25 mg PO TID PRN #10 tab 07/01/18 03/05/20 Rx meloxicam 7.5 mg PO QAM 07/01/18 03/05/20 History cyanocobalamin (vitamin B-12) 500 500 mcg PO PM tab 10/29/18 03/05/20 History mcg tablet duloxetine 30 mg capsule,delayed 30 mg PO QAM cap 10/29/18 03/05/20 History release metoprolol tartrate 100 mg tablet 50 mg PO BID tab 10/29/18 03/05/20 History buspirone 5 mg tablet 5 mg PO BID 01/29/19 03/05/20 History fluticasone propionate 50 1 sprays INTNAS DAILY PRN 01/29/19 03/05/20 History mcg/actuation nasal spray,suspension furosemide 40 mg tablet 20 mg PO QAM tab 01/29/19 03/05/20 History gabapentin 100 mg capsule 100 - 200 mg PO BID cap 01/29/19 03/05/20 History carbidopa 25 mg-levodopa 100 mg 1 tab PO QID 90 Days #360 tab 11/02/19 03/05/20 Rx tablet cetirizine 5 mg PO PM 03/05/20 03/05/20 History donepezil 5 mg PO QAM 03/05/20 03/05/20 History Patient History Medical History CHF (congestive heart failure) HTN (hypertension) Tremor Vertigo Surgical History H/O sinus surgery History of parathyroid surgery No pertinent past surgical history Family History Mother Malignant neoplasm of vagina Father Skin cancer Sister Cataract Grandfather Black lung disease Grandfather Black lung disease Other Family history non-contributory Social History Smoking Status: Former smoker Hx Alcohol Use: No Hx Substance Use: No Preferred Language: Angolan Communication Ability: Effective Beliefs That Will Affect Care: Jew Jew Beliefs: GNOSTICISM Current Living Situation: Family Current Living Situation Comment: GRANDDAUGHTER Other Information That Helps Us Care for You: No Feels Safe at Home: Yes Safety Concerns: Feels Safe At This Time Assistive Devices: Glasses Review of Systems Review of Systems: All systems reviewed & are unremarkable except as noted in HPI & below Physical Exam Constitutional: WD/WN, vitals as above well groomed, cooperative and comfortable Eyes: PERRL, conjunctivae normal, anicteric sclerae ENMT: external ear and nose normal, oropharynx normal Respiratory: normal respiratory effort, lungs clear to auscultation Cardiovascular: RRR, no murmur, no edema Gastrointestinal (Abdomen): normal bowel sounds, soft, nontender, no hepatosplenomegaly Rectal exam w/o masses, hemorrhoids. Yellowish stool noted Skin: no rashes, warm and dry no jaundice Psychiatric: A+Ox3, euthymic affect Lymphatic: no lymphedema Results & Data ([facility]) Vital Signs (Past 12 Hours) Vital Signs Temp Pulse Resp BP Pulse Ox 03/06/20 07:55 36.6 C 72 16 138/75 97 03/05/20 23:11 36.8 C 74 18 158/75 H 96 03/05/20 22:15 92 H 152/77 H
--- NOTE | 2020-03-06 15:33 | Discharge Summary ---
Date of Service March 06, 2020 Admission HPI Per Admitting Provider 84yo F w/ hx of hypothyroidism, Parkinsonism who presents with bright red blood per rectum. Last night, she had dinner at her daughter's house. She had some cramping abdominal pain and an episode of diarrhea. Per patient, she had some more cramping abdominal pain this morning and sat down on the toilet. She slipped to the side and was unable to get up. She denies loss of consciousness. She called her daughter who also could not get her up. They called EMS who helped her get up. They noticed blood on the floor where she had been. ED rectal exam showed bright red blood, but no clots. She has some left ankle pain from where she fell, but x-rays were negative for acute fracture. Principal Diagnosis GI bleed Discharge Exam Constitutional WD/WN, vitals as above Eyes EOM intact bilaterally; no conjunctival abnormality ENMT external ear and nose normal, oropharynx normal Neck trachea midline, no thyromegaly normal visual inspection Respiratory normal respiratory effort, lungs clear to auscultation no respiratory distress Cardiovascular RRR, no murmur, no edema Gastrointestinal (Abdomen) Inspection/Auscultation: abdomen normal to inspection; abdomen not distended Musculoskeletal no cyanosis or clubbing, extremities motor strength 5/5 Skin no rashes, warm and dry Neurologic moves all extremities and awake Psychiatric Orientation: alert, oriented to person and cooperative Discharge Data Allergies Allergy/AdvReac Type Severity Reaction Status Date / Time aspirin AdvReac Severe RASH Unverified 03/05/20 15:00 Consultations 03/05/20 14:49 ED Decision to Admit Stat 03/05/20 16:33 Consult Gastroenterology Routine Hospital Course (1) Acute lower GI bleeding: One large volume episode of bright red blood per rectum. Hemoglobin presently stable at 14.9; higher than prior baselines. T&S sent in the ED. She had a colonoscopy about 4 years ago in [place], but does not remember any results. - Monitor H&H - GI consulted - No need for colonoscopy. - Completely resolved by discharge. Had a BM with no blood. Probably hemorrhoidal as far as I can tell. If it recurs, consider PCP referring her to GI or colorectal surgery for further investigation. (2) Weakness: Likely from GI bleeding on top of chronic issues; no focal weaknesses. - PT/OT worked with her. Recommended home with home health. (3) Parkinsons disease: Follows with [facility]. - Continue home carbidopa-levodopa & donepezil (4) HTN (hypertension): BP in the ED was 160/80. Better by discharge. - Continue home amlodipine & metoprolol - Hold Lasix for now (5) CHF (congestive heart failure): Chronic diastolic heart failure; echo in 2018 shows EF > 70%. Presently appears euvolemic to mildly hypovolemic. - Gentle IV fluids - Held Lasix; restart on discharge. (6) CKD (chronic kidney disease) stage 3, GFR 30-59 ml/min: Baseline Cr, ~1.1 - 1.2. Presently at baseline. - Monitor Cr - Remained stable while inpatient. On discharge, Cr was 1.0. (7) Hypothyroidism: TSH was 1.99 in 06/2018. No signs/symptoms of hypo-/hyperthyroidism. - Continue home Synthroid 75 mcg - Recheck TSH was 2.8 this admission. (8) DVT prophylaxis: SCDs - Avoid heparin for GI bleed Total Time Total Time Spent Total Time Spent (In Minutes): 35 Discharge Plan Discharge Items Patient Disposition: Home - Home Health Services Reason For Visit: LOWER GI BLEED Discharge Diagnosis: Unknown lower GI bleed - Possibly hemorrhoidal Activity: Resume your previous activity Non-emergency contact: Primary Care Provider Call non-emergency contact if: your symptoms worsen Follow-up/Referrals: Roberta Contreras PA-C [Primary Care Provider] - Diet: Heart Healthy Addtl Attending Provider Instructions: Ms. Millard, You had a mild GI bleed and EMS brought you to the hospital. You didn't have any more bleeding here and your red blood cell levels were stable, indicating that your body was able to remake/rebuild the lost blood. The GI doctors didn't feel you needed any additional work-up. If this should happen again, please contact your PCP. You may need a repeat colonoscopy or even an anoscopy (just looking at the anus and lower part of the rectum) to look for hemorrhoids or other causes of bleeding. Your PCP can arrange this as long as the bleeding remains mild. If you have a larger amount of blood (ie staining the toilet bowl) or if you have other symptoms such as lightheadedness, dizziness, or other concerning signs/symptoms, please return to the Emergency Department. Physical therapy saw you and felt you were doing well. We will arrange some home PT for you to help keep your strength up. Pending Studies at Discharge: No Stand-Alone Forms: My [facility], Smoking Cessation Medications and DC Order Prescriptions: Continued carbidopa-levodopa 25-100 mg tablet 1 tab PO QID 90 Days Qty: 360 RF: 1 duloxetine 30 mg capsule,delayed release(DR/EC) 30 mg PO QAM RF: 0 cyanocobalamin (vitamin B-12) 500 mcg tablet 500 mcg PO PM RF: 0 metoprolol tartrate 100 mg tablet 50 mg PO BID RF: 0 gabapentin 100 mg capsule 100 - 200 mg PO BID RF: 0 buspirone 5 mg tablet 5 mg PO BID RF: 0 fluticasone propionate [Flonase Allergy Relief] 50 mcg/actuation spray,suspension 1 sprays INTNAS DAILY PRN (Reason: seasonal allergies) RF: 0 amlodipine 5 mg tablet 5 mg PO QAM RF: 0 levothyroxine 75 mcg tablet 75 mg PO QAM RF: 0 meloxicam 7.5 mg tablet 7.5 mg PO QAM RF: 0 meclizine 25 mg tablet 25 mg PO TID PRN (Reason: dizziness) Qty: 10 RF: 0 furosemide 40 mg tablet 20 mg PO QAM RF: 0 donepezil 5 mg tablet 5 mg PO QAM RF: 0 cetirizine 10 mg Tablet 5 mg PO PM RF: 0 Discharge Orders: Discharge Order (Routine); Ordered 03/06/20 Ordered By: Stephen Li/Other Patient Handouts: Understanding Hemorrhoids Admission Data Admit Date/Time: 03/05/20 15:27 Attending Provider: Stephen Lira Admit Provider: Stephen Lira Primary Care Provider: Roberta Contreras Other Providers: Stephen Lira ; Angie Doss ; [facility],Home Healthcare Other Interventions: Discharge Summary Assessment (RN) Last Done: 03/06/20 13:26 Coding Level of Care Code D/C Day Management >30 mins Diagnoses Acute lower GI bleeding K92.2 Weakness R53.1 Parkinsons disease G20 HTN (hypertension) I10 CHF (congestive heart failure) I50.9 CKD (chronic kidney disease) stage 3, GFR 30-59 ml/min N18.30 Hypothyroidism E03.9 DVT prophylaxis Z29.9
== END 2020-03-06 14:33 | disposition home health service (06) | DRG 378 ==
LOC: ED 13:16 → 3E 15:27

== ENCOUNTER 2020-03-22 12:17 | Inpatient (IN) ==
[2020-03-22] MEDS ORDERED: SODIUM CHLORIDE 0.9% 500 ML IV SCH (13:15)
[2020-03-22 13:22] LABS: Basophils # (auto) 0.01 K/uL (0-0.2); Basophils % (auto) 0.3 %; Eosinophils # (auto) 0.07 K/uL (0-0.5); Eosinophils % (auto) 1.9 %; Immature Granulocytes # (auto) 0.01 K/uL (0.00-0.02); Immature Granulocytes % (auto) 0.3 %; Lymphocytes # (auto) 1.54 K/uL (1.2-3.4); Lymphocytes % (auto) 42.9 %; Mean Corpuscular Hemoglobin 32.3 pg (25-34); Mean Corpuscular Volume 92.4 fL (80-100); Mean Platelet Volume 11.1 fL (7.4-10.4); Monocytes # (auto) 0.44 K/uL (0.11-0.59); Monocytes % (auto) 12.3 %; Neutrophils # (auto) 1.52 K/uL (1.4-6.5); Neutrophils % (auto) 42.3 %; Platelet Count 214 K/uL (130-400); RDW Coefficient of Variation 13.4 % (11.5-14.5); RDW Standard Deviation 45.5 fL (36.4-46.3); Red Blood Count 4.33 M/uL (4.2-5.4); White Blood Count 3.59 K/uL (4.8-10.8)
[2020-03-22 13:42] LABS: Prothrombin Time 10.5 Seconds (9.0-12.0)
--- NOTE | 2020-03-22 13:44 | XRay Report ---
XR chest 1V portable CLINICAL HISTORY: weakness hypoxia COMPARISON STUDY: 03/05/2020 FINDINGS: The heart is normal in size. There is persistent elevation right hemidiaphragm. There are m inor subsegmental right lung atelectatic changes. There is no lobar consolidation. There is no failur e. There is a chronic right shoulder deformity.[ IMPRESSION: No active disease in the chest. ACT 112: Negative or not required by law. Electronically signed by: Tho Reyna M.D. 03/22/2020 1:43 PM
--- NOTE | 2020-03-22 13:45 | XRay Report ---
XR ankle RT min 3V routine HISTORY: 84 years-old Female pain acute right ankle pain status post fall COMPARISON: 03/05/2020 TECHNIQUE: 3 views of the right ankle FINDINGS: Mildly demineralized appearance of the bones. Unchanged 4 mm corticated ossification adjacent to the medial malleolus suggestive of accessory ossicle versus remote fracture fragment. There is an acute o bliquely oriented fracture of the distal fibular metaphysis superior to the level of the tibial plafo nd with 2 mm lateral displacement. Fracture extends into the distal tibiofibular syndesmosis. No oste ochondral defect. Mild circumferential soft tissue swelling of the ankle. Moderate sized enthesophyte s of the calcaneus with moderate midfoot osteoarthritis. IMPRESSION: Acute minimally displaced fracture of the distal fibular metaphysis. ACT 112: Negative or not required by law. The above report was generated using voice recognition software. It may contain grammatical, syntax o r spelling errors. Electronically signed by: Fernandez Arias M.D. 03/22/2020 1:44 PM
[2020-03-22 13:47] LABS: Alanine Aminotransferase 11 U/L (12-78); Albumin Level 3.7 gm/dl (3.4-5.0); Aspartate Aminotransferase 22 U/L (15-37); BUN Creatinine Ratio 13.9 (10-20); Blood Urea Nitrogen 15 mg/dl (7-18); Calcium 8.9 mg/dl (8.5-10.1); Carbon Dioxide 30 mmol/L (21-32); Chloride 100 mmol/L (98-107); Creatinine Clr Calc Pharmacy 34.2 ml/min; Est GFR (African American) 52.1; Est GFR (Non-African American) 44.9; Glucose 137 mg/dl (70-99); Lipase 278 U/L (73-393); Magnesium 2.3 mg/dl (1.8-2.4); Potassium 3.4 mmol/L (3.5-5.1); Sodium 137 mmol/L (136-145)
[2020-03-22 13:58] LABS: Albumin Globulin Ratio 0.9 (0.9-2); Alkaline Phosphatase 55 U/L (45-117); Bilirubin,Total 0.6 mg/dl (0.2-1); Globulin 4.1 gm/dl (2.5-4.0); Total Protein 7.8 gm/dl (6.4-8.2); Troponin I < 0.015 ng/ml (0-0.045)
--- NOTE | 2020-03-22 14:01 | CT Scan Report ---
CT SCAN OF THE ABDOMEN AND PELVIS WITHOUT CONTRAST CLINICAL HISTORY: Abdominal pain COMPARISON STUDY: No previous studies for comparison. TECHNIQUE: CT scan of the abdomen and pelvis was performed from the lung bases to the proximal femurs . Images are reviewed in the axial, sagittal, and coronal planes. IV contrast was not administered fo r this examination. A dose lowering technique was utilized adhering to the principles of ALARA. CT DOSE: FINDINGS: Lower chest: There are subtle bilateral groundglass opacities consistent with a multifocal pneumonia. Liver: The unenhanced liver is normal in size, contour, and attenuation. There is no intrahepatic evin iary ductal dilatation. Gallbladder: Unremarkable. Spleen: Normal in size and attenuation. Pancreas: Unremarkable. Adrenal glands: Unremarkable. Kidneys: No renal, ureteral, or bladder calculi are visualized. There are bilateral renal hypodensiti es likely representing cysts. The largest located on the right measuring 23 mm. Bowel: There are no transition zones to indicate bowel obstruction. There is no evidence of acute div erticulitis. There are no findings to indicate acute appendicitis. Peritoneum: There is no intraperitoneal free air or abdominal ascites. Is a tiny fat-containing umbil ical hernia Vasculature: The abdominal aorta is normal in course and caliber. Adenopathy: Iliac chain lymph nodes are the upper limits of normal in size. Pelvic viscera: The bladder, and pelvic viscera are unremarkable. Skeletal structures: There is a nonspecific 13 mm subcutaneous nodule within the right posterior late ral soft tissues just inferior to the iliac crest level. There is a superior endplate L4 compression fracture likely old IMPRESSION: 1. Bilateral groundglass pulmonary opacities consistent with a multifocal pneumonitis 2. No evidence of bowel obstruction. No evidence of free air 3. No acute inflammatory changes within the abdomen or pelvis 4. Nonspecific 13 mm subcutaneous nodule within the right posterior lateral soft tissues just inferio r to the iliac crest level. ACT 112: Negative or not required by law. Electronically signed by: Tho Reyna M.D. 03/22/2020 2:00 PM
--- NOTE | 2020-03-22 14:05 | CT Scan Report ---
CT head/brain wo con CLINICAL HISTORY: 84 years-old Female with ams. Acutely altered mental status with dehydration. COVI D Positive. TECHNIQUE: Multiple axial CT images of the head were obtained without contrast. A dose lowering tech nique was utilized adhering to the principles of ALARA. CT DOSE: 1532.83 mGycm COMPARISON: Head CT 07/01/2018 FINDINGS: No acute intracranial hemorrhage, midline shift, intracranial mass, hydrocephalus, territorial ischem ia or abnormal extra-axial collection. Age-related involutional changes with ex vacuo ventriculomegal y. Confluent white matter hypodensities suggest chronic microvascular ischemic disease. Cerebral vasc ular and senescent lentiform nuclei calcifications. The calvarium is intact. Mastoid air cells are clear. Mild mucosal thickening of the ethmoid air ruel ls. 7 mm right ethmoid sinus osteoma. Developmental incomplete bony fusion involves the posterior arc h of C1. Prior bilateral lens replacement. IMPRESSION: No acute intracranial abnormality. ACT 112: Negative or not required by law. The above report was generated using voice recognition software. It may contain grammatical, syntax o r spelling errors. Electronically signed by: Fernandez Arias M.D. 03/22/2020 2:04 PM
--- NOTE | 2020-03-22 14:24 | Electrocardiogram Report ---
Test Reason : Blood Pressure : / mmHG Vent. Rate : 074 BPM Atrial Rate : 074 BPM P-R Int : 162 ms QRS Dur : 078 ms QT Int : 402 ms P-R-T Axes : 006 -01 013 degrees QTc Int : 446 ms Normal sinus rhythm Nonspecific ST abnormality Abnormal ECG When compared with ECG of 05-MAR-2020 14:12, Premature atrial complexes are no longer Present Confirmed by Eduardo Ceballos ([id number]) on 03/22/2020 2:24:27 PM Referred By: Confirmed By:Eduardo Ceballos
[2020-03-22 15:32] LABS: Appearance Urine Clear (Clear); Bilirubin Urine Negative (Negative); Blood Urine Negative (Negative); Color Urine Yellow; Glucose Urine UA Negative (Negative); Ketones Urine Negative (Negative); Leukocyte Esterase Urine Negative (Negative); Nitrite Urine Negative (Negative); Protein Urine Negative (Negative); Specific Gravity Urine 1.016 (1.000-1.030); Urobilinogen Urine Negative (Negative); pH Urine 5.5 (4.5-7.5)
--- NOTE | 2020-03-22 16:43 | History & Physical Report ---
Date of Service March 22, 2020 Assessment & Plan (1) Fracture of distal fibula: NWB right lower extremity. Splint placed in ER. Follow up with orthopedics. PT/OT (2) Fall: Secondary to Parksinons and ankle fracture. PT/OT. Possible need for placement. (3) COVID-19: SARS-COV2 positive No hypoxia to warrant use of dexamethasone, remdesivir or convalescent plasma (4) Parkinsons disease: Continue Sinemet (5) HTN (hypertension): Continue Lasix 20 mg p.o. every morning, amlodipine 5 mg p.o. every morning (6) Tremor: (7) Hypothyroidism: TSH 2.78 Continue levothyroxine 75 mcg p.o. daily (8) DVT prophylaxis: Lovenox 40 mg SQ QPM Admission and Anticipated Discharge Date Admission Date: 03/21/2020 History of Present Illness Chief Complaint: Recurrent falls, ankle fracture Primary Care Provider: Roberta Contreras PA-C ankle x-rayVenessa Millard is an 84-year-old female with Parkinson's who presents to the ER with right ankle pain and recurrent falls. The patient was unable to give me any history regarding recent events. She reports she was in hospital sometime ago and she has had ankle when slipping off the toilet. She was recently hospitalized from March 05 to March 06, 2020 due to a lower GI bleed. At that time she slipped off the toilet and had right ankle pain. Initial x-ray did not show any fracture however the it has continued to be painful since. She was discharged home the following day but reportedly has been falling on multiple occasions. Per her family member she recently tested positive for COVID-19 but she reports being asymptomatic with this. ER contacted her family member Susi who reported she thinks the patient contracted coronavirus from a physical therapist at home. She has been falling on multiple occasions, confusion, poor oral intake and increasing fatigue where she feels the patient is no longer safe to be at home. SARS-CoV-2 positive test on March 20. In the ER, ankle x-ray showed minimally displaced fracture of the distal fibula metaphysis. She was referred to medicine for admission and ongoing management of Covid, falls, confusion. Allergies Allergy/AdvReac Type Severity Reaction Status Date / Time aspirin AdvReac Severe RASH Unverified 03/05/20 15:00 Home Medications Medication Instructions Recorded Confirmed Type amlodipine 5 mg PO QAM 07/01/18 03/22/20 History levothyroxine 75 mg PO QAM 07/01/18 03/22/20 History meclizine 25 mg PO TID PRN #10 tab 07/01/18 03/22/20 Rx meloxicam 7.5 mg PO QAM 07/01/18 03/22/20 History cyanocobalamin (vitamin B-12) 500 500 mcg PO PM tab 10/29/18 03/22/20 History mcg tablet duloxetine 30 mg capsule,delayed 30 mg PO QAM cap 10/29/18 03/22/20 History release metoprolol tartrate 100 mg tablet 50 mg PO BID tab 10/29/18 03/22/20 History buspirone 5 mg tablet 5 mg PO BID 01/29/19 03/22/20 History fluticasone propionate 50 1 sprays INTNAS DAILY PRN 01/29/19 03/22/20 History mcg/actuation nasal spray,suspension furosemide 40 mg tablet 20 mg PO QAM tab 01/29/19 03/22/20 History gabapentin 100 mg capsule 100 - 200 mg PO BID cap 01/29/19 03/22/20 History carbidopa 25 mg-levodopa 100 mg 1 tab PO QID 90 Days #360 tab 11/02/19 03/22/20 Rx tablet cetirizine 5 mg PO PM 03/05/20 03/22/20 History donepezil 5 mg PO QAM 03/05/20 03/22/20 History Past Med/Surg History Medical History (Updated 03/23/20 @ 06:28 by Rebel Mcghee MD) CHF (congestive heart failure) HTN (hypertension) Tremor Vertigo Surgical History H/O sinus surgery History of parathyroid surgery No pertinent past surgical history Family History Mother Malignant neoplasm of vagina Father Skin cancer Sister Cataract Grandfather Black lung disease Grandfather Black lung disease Other Family history non-contributory Social History Smoking Status: Former smoker Smoking End Date: 30 years ago; Hx Alcohol Use: No Hx Substance Use: No Preferred Language: Hong Konger Communication Ability: Effective Director Of Restaurant Required: No Beliefs That Will Affect Care: None marital status: / Current Living Situation: Family Current Living Situation Comment: GRANDDAUGHTER Other Information That Helps Us Care for You: No Feels Safe at Home: Yes Safety Concerns: Feels Safe At This Time Assistive Devices: None Review of Systems Review of Systems: All systems reviewed & are unremarkable except as noted in HPI & below and Unobtainable due to cognitive status Physical Exam Constitutional: well developed; + not well nourished and no acute distress Eyes: + anicteric sclerae; normal pupil size ENMT: external ear and nose normal, oropharynx normal Neck: trachea midline Respiratory: normal respiratory effort, lungs clear to auscultation Cardiovascular: Rate/Rhythm: regular rate and regular rhythm Heart Sounds: no murmur Extremities: normal capillary refill Gastrointestinal (Abdomen): normal bowel sounds, soft, nontender, no hepatosplenomegaly Musculoskeletal: Ankle: no deformity and no skin erythema Lateral right ankle tender to palpation Skin: no rashes, warm and dry Neurologic: moves all extremities (No cogwheel rigidity), awake and + confused Psychiatric: Orientation: alert, oriented to person, oriented to place and oriented to time Eye Contact: good eye contact Genitourinary: no CVA tenderness Results & Data Results & Data ([facility]) Vital Signs (Past 12 Hours) Vital Signs Temp Pulse Pulse Resp BP BP Pulse Ox 03/22/20 16:33 72 20 116/83 94 03/22/20 14:43 76 18 113/76 96 03/22/20 12:35 37.2 C 76 18 133/[address] head/brain wo con IMPRESSION: No acute intracranial abnormality. XR chest 1V portable IMPRESSION: No active disease in the chest. CT SCAN OF THE ABDOMEN AND PELVIS WITHOUT CONTRAST IMPRESSION: 1. Bilateral groundglass pulmonary opacities consistent with a multifocal pneumonitis 2. No evidence of bowel obstruction. No evidence of free air 3. No acute inflammatory changes within the abdomen or pelvis 4. Nonspecific 13 mm subcutaneous nodule within the right posterior lateral soft tissues just inferior to the iliac crest level. XR ankle RT min 3V routine IMPRESSION: Acute minimally displaced fracture of the distal fibular metaphysis. Medications Administered ER medications given: NSS 500 mL bolus ECG Indication: other Rate (beats per minute): 74 Rhythm: normal sinus Findings: + nonspecific-ST abn Comparison ECG Date: from (March 05, 2020) Change: the following changes noted (PACs no longer present) Code Status & VTE Plan Code Status Full VTE Prophylaxis Plan VTE Prophylaxis will be ordered: Yes PG Care Time/CCT Total # of Minutes Spent Total Time Spent with Patient: Total time spent is greater than 50% in coordination of care (as documented) at patient's floor/unit and/or counseling patient: Coding Level of Care Code 48485 OBS Care - Level 2 Diagnoses Fracture of distal fibula S82.839A Fall W19.XXXA Encounter type: initial encounter COVID-19 U07.1 Parkinsons disease G20 HTN (hypertension) I10 Tremor R25.1 Hypothyroidism E03.9 DVT prophylaxis Z29.9 (1) Fall Encounter type: initial encounter Qualified Code(s): W19.XXXA - Unspecified fall, initial encounter
[2020-03-22] MEDS ORDERED: CARBIDOPA/LEVODOPA 25/100MG TAB PO STA (17:16)
--- NOTE | 2020-03-22 18:30 | Emergency Department Note ---
Impression & Plan Fracture of distal end of fibula, Weakness, Fall, Confusion, Abdominal pain, Decreased oral intake ED Provider Note Provider: Gabriel Almeida MD DATE OF SERVICE:03/22/2020 CHIEF COMPLAINT: Covid, weakness, falls HISTORY OF PRESENT ILLNESS: Patient is a 84-year-old female history of hypothyroidism, CKD, Parkinson's disease, mild cognitive impairment, hypertension, Parkinson's, CHF presenting today via ambulance from home. Reportedly found at she is Covid positive and has had symptoms for several days. Patient herself states she feels a bit tired has been had some falls recently. Complaining of pain in her right lateral ankle. Patient denies significant chest pain or shortness of breath at rest. Denies abdominal pain, nausea, or vomiting. Patient does states she been eating and drinking little bit less than normal. Patient states her pain 5 out of 10 in the ankle. Denies any numbness in the foot. States she again she has fallen several times. Patient herself is not the best of historians on exam. With her permission call discussed with her family member Susi via phone who states they believe the patient may have contracted coronavirus from physical therapy this visiting. She was recently hospitalized for concerns for GI bleed but no acute source was found and this seems to have moderated. Family believes the patient's not you are drinking very much and did have fevers over the last several days and has been complaining of some abdominal discomfort. Unsure if the patient's had additional blood in her stool and the patient herself denies this. Family state the patient has fallen multiple times and sometimes they have lifted off the ground or had EMS, but she is not been in the hospital again since recent hospitalization. Family do states that she had to be confused last night mixing of family members at home did not did not seem like her self. REVIEW OF SYSTEMS: A total of 10 review of systems was obtained and negative except as stated above in the HPI. PAST MEDICAL HISTORY: As noted above MEDICATIONS: Reviewed home medication list SOCIAL HISTORY: Resides at home, former smoker PHYSICAL EXAM: GENERAL: alert and oriented to person but somewhat hazy to events in no acute distress on stretcher Head: normocephalic and atraumatic EYES: No injection, discharge or icterus. PERRL NECK: Trachea midline. LUNGS: Airway patent. No retractions. HEART: Regular rate and rhythm. No chest wall tenderness ABDOMEN: Soft and non-tender, without guarding or rebound. SKIN: Acyanotic, warm, dry, without rashes EXTREMITIES: Without swelling, tenderness or deformity for some pain and swelling laterally of the right ankle. No fibular head tenderness or right knee tenderness. 1+ DP pulse of the right foot. Neuro intact in the right toes. NEUROLOGICAL: No focal deficits. No aphasia. No facial droop or slurred speech. Not the best historian to current events. EK bpm normal sinus rhythm no PVC or PAC. Nonspecific ST abnormality but n o ST segment elevation is notable. QTc 446. CONTINUOUS CARDIAC MONITORING: was ordered and showed a heart rate of 80 bpm in normal sinus rhythm GCS 15. PROCEDURE: splint placement by my order Indications for procedure: Distal right fibular fracture Description of the procedure: Short posterior with stirrups fiberglass splint was placed on the patient's right lower extremity. Neurovascular status was intact after placement of the splint. PATIENT CONDITION AFTER PROCEDURE: good Patient's laboratory studies and imaging reviewed. Differential includes Infection, dehydration, metabolic abnormality, hypo/hyperglycemia, electrolyte disturbance, anemia, hypoxia, cardiac sources, intracerebral event, toxicologic, neurologic, traumatic injury, as well as other pathologies. IMPRESSION/MEDICAL DECISION MAKING: Patient presents with multiple falls Covid positive from sample 2 days ago was a little bit hypoxic initially but not really requiring that much oxygen here and quickly weaned off. Lower suspicion for acute PE. Does have some right ankle pain and swelling given this did complete an x-ray here which fortunately shows a distal right fibular fracture without dislocation. This was splinted as above under my direction. Will need orthopedic follow-up and a nonweightbearing statu s here. Maintained in isolation given coronavirus status. Slight leukopenia likely related to viral infection. Hemoglobin is stable. She denies real significant additional GI bleeding and given the stable hemoglobin doubt significant GI bleed at this point. Review of notes from his hospitalization believed they thought it was hemorrhoidal related but they did not perform scopes. Urinalysis here is negative without signs of infection. TSH within normal lives. No evidence of acute pancreatitis or hepatitis. Troponin is undetectable I doubt acute ACS. No significant electrolyte light abnormality although some slight hypokalemia is noted. Renal function appears stable. Given some IV hydration. And that family had some concerns about some possible confusion although she has no focal deficit lower suspicion for acute stroke or meningitis. Did however complete a CT of the head to seclude acute intracranial abnormality or bleed which was negative. Given their report of some abdominal discomfort last several days CT of the abdomen pelvis was completed without acute intra-abdominal findings noted. Nonspecific subcutaneous nodules noted as well as some pulmonary groundglass findings consistent with her history of Covid. Again the patient while here quickly weaned off oxygen do not feel she needs steroids at this point. Patient's pain seems fairly well controlled at this time. Discussed the patient and also family member Susi via phone about the patient. States have been trying to obtain some outpatient marriage and family social worker and additional help at home but in contact with social versus a day reports they are overwhelmed. No concerns about ability to go home given multiple falls recently now with an ankle fracture but question if she could have more serious fracture in future including possible head injury or hip fracture. In discussion with the patient's daughter given the multiple falls injuries and coronavirus status now in shared decision-making feel that better option be to observe the patient here and see if additional case management placement may be needed. Also provide additional hydration as needed with her decreased oral intake today. DIAGNOSIS: Fall, distal right fibular fracture, coronavirus 19, decreased oral intake, abdominal pain DISPOSITION: Hospitalist will evaluate Patient was agreeable with this plan. Did update the patient's family member Susi via phone who agreed with this plan. Past Med/Surg History Medical History (Updated 03/22/20 @ 18:51 by Gabriel Almeida M.D.) CHF (congestive heart failure) HTN (hypertension) Tremor Vertigo Surgical History H/O sinus surgery History of parathyroid surgery No pertinent past surgical history Family History Mother Malignant neoplasm of vagina Father Skin cancer Sister Cataract Grandfather Black lung disease Grandfather Black lung disease Other Family history non-contributory Social History Smoking Status: Former smoker Hx Alcohol Use: No Hx Substance Use: No Preferred Language: Turkish Communication Ability: Effective Beliefs That Will Affect Care: Yarsanism Yarsanism Beliefs: ORIENTAL ORTHODOX marital status: / Current Living Situation: Family Current Living Situation Comment: GRANDDAUGHTER Feels Safe at Home: Yes Assistive Devices: Walker Allergies Allergies Allergy/AdvReac Type Severity Reaction Status Date / Time aspirin AdvReac Severe RASH Unverified 03/05/20 15:00 Home Meds Home Medications Medication Instructions Recorded Confirmed amlodipine 5 mg PO QAM 07/01/18 03/22/20 levothyroxine 75 mg PO QAM 07/01/18 03/22/20 meloxicam 7.5 mg PO QAM 07/01/18 03/22/20 cyanocobalamin (vitamin B-12) 500 500 mcg PO PM tab 10/29/18 03/22/20 mcg tablet duloxetine 30 mg capsule,delayed 30 mg PO QAM cap 10/29/18 03/22/20 release metoprolol tartrate 100 mg tablet 50 mg PO BID tab 10/29/18 03/22/20 buspirone 5 mg tablet 5 mg PO BID 01/29/19 03/22/20 fluticasone propionate 50 1 sprays INTNAS DAILY PRN 01/29/19 03/22/20 mcg/actuation nasal spray,suspension furosemide 40 mg tablet 20 mg PO QAM tab 01/29/19 03/22/20 gabapentin 100 mg capsule 100 - 200 mg PO BID cap 01/29/19 03/22/20 cetirizine 5 mg PO PM 03/05/20 03/22/20 donepezil 5 mg PO QAM 03/05/20 03/22/20 Previous Rx's Medication Instructions Recorded meclizine 25 mg PO TID PRN #10 tab 07/01/18 carbidopa 25 mg-levodopa 100 mg 1 tab PO QID 90 Days #360 tab 11/02/19 tablet Results & Data (ED) Vital Signs Vital Signs - 24 hr 03/22/20 12:35 03/22/20 14:43 03/22/20 16:33 Temperature 37.2 C Temperature Source Oral Pulse Rate 76 Pulse Rate [Left Finger] 76 72 Respiratory Rate 18 18 20 Respiratory Effort / Characteristics Non-Labored Spontaneous Respiratory Depth Normal Respiratory Pattern Regular Blood Pressure 133/78 Blood Pressure [Left Arm] 113/76 116/83 Blood Pressure Mean 96 Blood Pressure Mean [Left Arm] 88 94 Blood Pressure Position Lying Pulse Oximetry 88 L 96 94 Oxygen Delivery Method Room Air Room Air Room Air Sepsis Recent Fever Within 48 Hours No Sepsis New/Unexplained Change in Mental Status N/A Sepsis Action Taken by Nursing No Action Required Laboratory Data Result diagrams: 03/22/20 12:32 03/22/20 12:32 Lab Results 03/22/20 03/22/20 03/22/20 Range/Units 12:32 12:32 12:32 WBC 3.59 L (4.8-10.8) K/uL RBC 4.33 (4.2-5.4) M/uL Hgb 14.0 (12.0-16.0) g/dL Hct 40.0 (37-47) % MCV 92.4 (80-100) fL MCH 32.3 (25-34) pg MCHC 35.0 (32-36) g/dL RDW Std Deviation 45.5 (36.4-46.3) fL RDW Coeff of Aysha 13.4 (11.5-14.5) % Plt Count 214 (130-400) K/uL MPV 11.1 H (7.4-10.4) fL Immature Gran % (Auto) 0.3 % Neut % (Auto) 42.3 % Lymph % (Auto) 42.9 % [place] % (Auto) 12.3 % Eos % (Auto) 1.9 % Baso % (Auto) 0.3 % Neut # (Auto) 1.52 (1.4-6.5) K/uL Lymph # (Auto) 1.54 (1.2-3.4) K/uL [place] # (Auto) 0.44 (0.11-0.59) K/uL Eos # (Auto) 0.07 (0-0.5) K/uL Baso # (Auto) 0.01 (0-0.2) K/uL Immature Gran # (Auto) 0.01 (0.00-0.02) K/uL PT 10.5 (9.0-12.0) Seconds INR 1.0 (0.9-1.1) Sodium 137 (136-145) mmol/L Potassium 3.4 L (3.5-5.1) mmol/L Chloride 100 (98-107) mmol/L Carbon Dioxide 30 (21-32) mmol/L Anion Gap 7.0 (3-11) BUN 15 (7-18) mg/dl Creatinine 1.11 (0.6-1.2) mg/dl Est Cr Clr Drug Dosing 34.2 ml/min Est GFR ( Amer) 52.1 Est GFR (Non-Af Amer) 44.9 BUN/Creatinine Ratio 13.9 (10-20) Glucose 137 H (70-99) mg/dl Calcium 8.9 (8.5-10.1) mg/dl Magnesium 2.3 (1.8-2.4) mg/dl Total Bilirubin 0.6 (0.2-1) mg/dl AST 22 (15-37) U/L ALT 11 L (12-78) U/L Alkaline Phosphatase 55 (45-117) U/L Troponin I < 0.015 (0-0.045) ng/ml Total Protein 7.8 (6.4-8.2) gm/dl Albumin 3.7 (3.4-5.0) gm/dl Globulin 4.1 H (2.5-4.0) gm/dl Albumin/Globulin Ratio 0.9 (0.9-2) Lipase 278 (73-393) U/L TSH 2.780 (0.300-4.500) uIu/ml Urine Color Urine Appearance (Clear) Urine pH (4.5-7.5) Ur Specific [place] (1.000-1.030) Urine Protein (Negative) Urine Glucose (UA) (Negative) Urine Ketones (Negative) Urine Blood (Negative) Urine Nitrite (Negative) Urine Bilirubin (Negative) Urine Urobilinogen (Negative) Ur Leukocyte Esterase (Negative) 03/22/20 Range/Units 15:05 WBC (4.8-10.8) K/uL RBC (4.2-5.4) M/uL Hgb (12.0-16.0) g/dL Hct (37-47) % MCV (80-100) fL MCH (25-34) pg MCHC (32-36) g/dL RDW Std Deviation (36.4-46.3) fL RDW Coeff of Aysha (11.5-14.5) % Plt Count (130-400) K/uL MPV (7.4-10.4) fL Immature Gran % (Auto) % Neut % (Auto) % Lymph % (Auto) % [place] % (Auto) % Eos % (Auto) % Baso % (Auto) % Neut # (Auto) (1.4-6.5) K/uL Lymph # (Auto) (1.2-3.4) K/uL [place] # (Auto) (0.11-0.59) K/uL Eos # (Auto) (0-0.5) K/uL Baso # (Auto) (0-0.2) K/uL Immature Gran # (Auto) (0.00-0.02) K/uL PT (9.0-12.0) Seconds INR (0.9-1.1) Sodium (136-145) mmol/L Potassium (3.5-5.1) mmol/L Chloride (98-107) mmol/L Carbon Dioxide (21-32) mmol/L Anion Gap (3-11) BUN (7-18) mg/dl Creatinine (0.6-1.2) mg/dl Est Cr Clr Drug Dosing ml/min Est GFR ( Amer) Est GFR (Non-Af Amer) BUN/Creatinine Ratio (10-20) Glucose (70-99) mg/dl Calcium (8.5-10.1) mg/dl Magnesium (1.8-2.4) mg/dl Total Bilirubin (0.2-1) mg/dl AST (15-37) U/L ALT (12-78) U/L Alkaline Phosphatase (45-117) U/L Troponin I (0-0.045) ng/ml Total Protein (6.4-8.2) gm/dl Albumin (3.4-5.0) gm/dl Globulin (2.5-4.0) gm/dl Albumin/Globulin Ratio (0.9-2) Lipase (73-393) U/L TSH (0.300-4.500) uIu/ml Urine Color Yellow Urine Appearance Clear (Clear) Urine pH 5.5 (4.5-7.5) Ur Specific [place] 1.016 (1.000-1.030) Urine Protein Negative (Negative) Urine Glucose (UA) Negative (Negative) Urine Ketones Negative (Negative) Urine Blood Negative (Negative) Urine Nitrite Negative (Negative) Urine Bilirubin Negative (Negative) Urine Urobilinogen Negative (Negative) Ur Leukocyte Esterase Negative (Negative) Administered Medications Discontinued Medications Carbidopa/Levodopa (Carbidopa/Levodopa 25/100mg Tab) 1 tab PO ONE STA Stop: 03/22/20 17:17 Last Admin: 03/22/20 17:57 Dose: 1 tab Documented by: [id number] Sodium Chloride (Nss) 500 mls @ 999 mls/hr IV .Q31M BRYAN Stop: 03/22/20 13:45 Last Infusion: 03/22/20 16:01 Dose: 0 mls/hr Documented by: [id number] Admin: 03/22/20 14:51 Dose: 999 mls/hr Documented by: [id number] Discharge Plan Visit Data Chief Complaint: Dehydration Stated Complaint: COVID AMS per family ED Provider: Gabriel Almeida Discharge Problem: Fracture of distal end of fibula, Weakness, Fall, Confusion, Abdominal pain, Decreased oral intake Patient Disposition: Admitted As Inpatient Discharge Problem: Fracture of distal end of fibula Qualifiers: Encounter type: initial encounter Fracture type: closed Fracture morphology: unspecified fracture morphology Laterality: right Qualified Code(s): S82.831A - Other fracture of upper and lower end of right fibula, initial encounter for closed fracture Fall Qualifiers: Encounter type: initial encounter Qualified Code(s): W19.XXXA - Unspecified fall, initial encounter Abdominal pain Qualifiers: Abdominal location: generalized Qualified Code(s): R10.84 - Generalized abdominal pain
[2020-03-22] MEDS ORDERED: FLUTICASONE PROPIONATE NA SPR 16 GM BTL NAE PRN (19:58)
[2020-03-22] MEDS ORDERED: MECLIZINE HCL 25 MG TAB PO PRN (20:09)
[2020-03-22] MEDS: CARBIDOPA/LEVODOPA 25/100MG TAB PO SCH (23:02)
[2020-03-22] MEDS: busPIRone 5 MG TAB PO SCH (23:02)
[2020-03-22] MEDS: CETIRIZINE HCL 10 MG TABLET PO SCH (23:02)
[2020-03-22] MEDS: CYANOCOBALAMIN 500 MCG TABLET (VITAMIN B-12) PO SCH (23:04)
[2020-03-22] MEDS: ENOXAPARIN INJ 40 MG/0.4 ML SYR SQ SCH (23:05)
[2020-03-23 08:04] LABS: Basophils # (auto) 0.01 K/uL (0-0.2); Basophils % (auto) 0.2 %; Eosinophils # (auto) 0.08 K/uL (0-0.5); Eosinophils % (auto) 1.8 %; Hemoglobin 14.4 g/dL (12.0-16.0); Immature Granulocytes # (auto) 0.01 K/uL (0.00-0.02); Immature Granulocytes % (auto) 0.2 %; Lymphocytes # (auto) 1.77 K/uL (1.2-3.4); Lymphocytes % (auto) 39.6 %; Mean Corpuscular Hemoglobin 32.7 pg (25-34); Mean Corpuscular Hgb Conc 35.1 g/dL (32-36); Mean Platelet Volume 10.9 fL (7.4-10.4); Monocytes # (auto) 0.58 K/uL (0.11-0.59); Neutrophils # (auto) 2.02 K/uL (1.4-6.5); Neutrophils % (auto) 45.2 %; Platelet Count 214 K/uL (130-400); RDW Coefficient of Variation 13.4 % (11.5-14.5); RDW Standard Deviation 45.8 fL (36.4-46.3); Red Blood Count 4.41 M/uL (4.2-5.4); White Blood Count 4.47 K/uL (4.8-10.8)
[2020-03-23 08:21] LABS: BUN Creatinine Ratio 13.6 (10-20); Blood Urea Nitrogen 15 mg/dl (7-18); C Reactive Protein 1.82 mg/dl (0-0.29); Calcium 9.7 mg/dl (8.5-10.1); Carbon Dioxide 31 mmol/L (21-32); Chloride 99 mmol/L (98-107); Creatinine Clr Calc Pharmacy 35.9 ml/min; Est GFR (African American) 54.4; Glucose 109 mg/dl (70-99); Potassium 3.8 mmol/L (3.5-5.1); Sodium 138 mmol/L (136-145)
[2020-03-23 08:23] LABS: D Dimer 1120 ug/L FEU (0-500)
[2020-03-23 08:26] LABS: Creatine Kinase 150 U/L (26-192); Troponin I < 0.015 ng/ml (0-0.045)
[2020-03-23] MEDS: GABAPENTIN 100 MG CAP PO SCH (08:50)
[2020-03-23] MEDS: DONEPEZIL HCL 5 MG TAB PO SCH (08:50)
[2020-03-23] MEDS: busPIRone 5 MG TAB PO SCH ×2 (08:50→20:29)
[2020-03-23] MEDS: MELOXICAM 7.5 MG TAB PO SCH (08:50)
[2020-03-23] MEDS: amLODIPine BESYLATE 5 MG TAB PO SCH (08:50)
[2020-03-23] MEDS: CARBIDOPA/LEVODOPA 25/100MG TAB PO SCH ×4 (08:50→20:29)
[2020-03-23] MEDS: DULoxetine HCL 30 MG CAP PO SCH (08:50)
[2020-03-23] MEDS: FUROSEMIDE 20 MG TAB PO SCH (08:51)
[2020-03-23] MEDS: LEVOTHYROXINE SODIUM 75 MCG TABLET PO SCH (08:52)
--- NOTE | 2020-03-23 16:29 | Hospitalist Progress Note ---
Date of Service March 23, 2020 Assessment & Plan (1) COVID-19: Patient with mild symptoms of Covid prior to admission Patient presented with fractured fibula and may need surgical intervention Covid testing was completed and patient was positive 03/20/2020 Currently patient is oxygenating well on room air. She has no adventitious breath sounds. She has no fever. Would provide supportive care at this time. Do not recommend remdesivir, steroids, or convalescent plasma Patient most likely will need rehab secondary to weakness and fracture (2) Fracture of distal end of fibula: This occurred as result of a fall secondary to Parkinson's disease PT OT consult evaluation has been requested Orthopedics was contacted. At this time they would recommend conservative treatment secondary to her active Covid as she is not a surgical candidate She will be evaluated in the office by Dr. Arnel Fatima in 2 weeks Until that time she should be assist x1 and use a walker. She can do touchdown only of the right toe to assist with transfers. Okay to continue with splint until seen in the outpatient office Continue to manage pain (3) Weakness: Multifactorial secondary to Parkinson's disease as well as Covid PT/OT consult evaluation requested Suspect the patient will need rehab or group home at this time Once we have the therapy evaluations, will work with case management to find appropriate placement (4) CKD (chronic kidney disease) stage 3, GFR 30-59 ml/min: BUN 15 and creatinine 1.07. Estimated GFR is 47 Continue to monitor as needed (5) Hypothyroidism: Continue levothyroxine 75 mcg p.o. daily TSH on admission was 2.78 Continue to follow outpatient (6) Parkinsonism: Continue with usual home medications Outpatient follow-up (7) DVT prophylaxis: Not a surgical candidate at this time so we will continue with enoxaparin 40 mg subcu daily Admission and Anticipated Discharge Date Admission Date: March 22, 2020 Subjective Attending: Dr. Oscar Jackson This is an 84-year-old female that presents from home with a fall. She has a past medical history including hypothyroidism, CKD, Parkinson's disease, mild cognitive impairment, hypertension, CHF. Patient is a very poor historian but states that she did fall and injured her right ankle. Chest x-ray shows fracture of the distal tibial which is slightly displaced. There is currently a splint in place and patient states that pain is generally controlled. She denies any fever or chills. She did report some Covid positive symptoms over the last several days including some shortness of breath weakness and abdominal pain. Covid testing was completed and showed positive findings 03/20/2020. Patient denies any sweats. She has no cough. She states that she does not have any shortness of breath and is currently oxygenating well on room air. She has no other acute complaints. Review of Systems Review of Systems: All systems reviewed & are unremarkable except as noted in Subjective Physical Exam Physical Exam: GENERAL : No acute distress. EYES: No icterus, gaze conjugate NOSE: No evidence of epistaxis. MOUTH: No lesions or candidiasis. Mucosa is moist NECK: Supple LUNGS: Fine bibasilar crackles. Good inspiratory effort. No significant cough with deep inspiratory effort. HEART: Regular, rate controlled ABDOMEN: Soft, NT, ND, BS Present EXTREMITIES: No LE edema on the left, pedal pulses intact and equal bilaterally. Good capillary refill to toes #1 on right foot. Splint is in place with bulky dressing to right foot ankle and lower leg NEURO: A&OX3 Results & Data Results & Data ([facility]) Vital Signs (Past 12 Hours) Vital Signs Temp Pulse Pulse Resp BP BP Pulse Ox 03/23/20 15:18 37 C 91 H 18 140/82 92 03/23/20 12:18 37.0 C 94 H 16 141/80 H 96 03/23/20 09:21 37.6 C H 93 H 23 150/77 H 92 03/23/20 06:10 82 03/23/20 04:43 37.0 C 83 17 148/65 H 93 Laboratory Results 03/23/20 07:50 03/23/20 07:50 03/22/20 03/23/20 12:32 07:50 Troponin I < 0.015 < 0.015 INR 1.0 (0.9-1.1) 03/22/20 12:32 Diagnostic Findings XR chest 1V portable CLINICAL HISTORY: weakness hypoxia COMPARISON STUDY: 03/05/2020 FINDINGS: The heart is normal in size. There is persistent elevation right hemidiaphragm. There are minor subsegmental right lung atelectatic changes. There is no lobar consolidation. There is no failure. There is a chronic right shoulder deformity.[ IMPRESSION: No active disease in the chest. ACT 112: Negative or not required by law. Electronically signed by: Tho Reyna M.D. 03/22/2020 1:43 PM XR ankle RT min 3V routine HISTORY: 84 years-old Female pain acute right ankle pain status post fall COMPARISON: 03/05/2020 TECHNIQUE: 3 views of the right ankle FINDINGS: Mildly demineralized appearance of the bones. Unchanged 4 mm corticated ossification adjacent to the medial malleolus suggestive of accessory ossicle versus remote fracture fragment. There is an acute obliquely oriented fracture of the distal fibular metaphysis superior to the level of the tibial plafond with 2 mm lateral displacement. Fracture extends into the distal tibiofibular syndesmosis. No osteochondral defect. Mild circumferential soft tissue swelling of the ankle. Moderate sized enthesophytes of the calcaneus with moderate midfoot osteoarthritis. IMPRESSION: Acute minimally displaced fracture of the distal fibular metaphysis. ACT 112: Negative or not required by law. The above report was generated using voice recognition software. It may contain grammatical, syntax or spelling errors. Electronically signed by: Fernandez Arias M.D. 03/22/2020 1:44 PM PG Care Time/CCT Total # of Minutes Spent Total Time Spent with Patient: Total time spent is greater than 50% in coordination of care (as documented) at patient's floor/unit and/or counseling patient: 30 minutes including discussion with family Coding Level of Care Code 13740 Subseq Hosp Care Lvl 2 Diagnoses COVID-19 U07.1 Fracture of distal end of fibula S82.831A Encounter type: initial encounter Fracture morphology: unspecified fracture morphology Fracture type: closed Laterality: right Weakness R53.1 CKD (chronic kidney disease) stage 3, GFR 30-59 ml/min N18.30 Hypothyroidism E03.9 Parkinsonism G20 DVT prophylaxis Z29.9 (1) Fracture of distal end of fibula Encounter type: initial encounter Fracture morphology: unspecified fracture morphology Fracture type: closed Laterality: right Qualified Code(s): S82.831A - Other fracture of upper and lower end of right fibula, initial encounter for closed fracture
[2020-03-23] MEDS: ACETAMINOPHEN 325 MG TAB PO PRN (20:28)
[2020-03-23] MEDS: ENOXAPARIN INJ 40 MG/0.4 ML SYR SQ SCH (20:28)
[2020-03-23] MEDS: CETIRIZINE HCL 10 MG TABLET PO SCH (20:29)
[2020-03-23] MEDS: CYANOCOBALAMIN 500 MCG TABLET (VITAMIN B-12) PO SCH (20:29)
[2020-03-24] MEDS: LEVOTHYROXINE SODIUM 75 MCG TABLET PO SCH (05:56)
[2020-03-24] MEDS: busPIRone 5 MG TAB PO SCH ×2 (09:45→21:39)
[2020-03-24] MEDS: amLODIPine BESYLATE 5 MG TAB PO SCH (09:45)
[2020-03-24] MEDS: FUROSEMIDE 20 MG TAB PO SCH (09:45)
[2020-03-24] MEDS: CARBIDOPA/LEVODOPA 25/100MG TAB PO SCH ×4 (09:45→21:40)
[2020-03-24] MEDS: DULoxetine HCL 30 MG CAP PO SCH (09:45)
[2020-03-24] MEDS: GABAPENTIN 100 MG CAP PO SCH (09:45)
[2020-03-24] MEDS: MELOXICAM 7.5 MG TAB PO SCH (09:45)
[2020-03-24] MEDS: DONEPEZIL HCL 5 MG TAB PO SCH (09:45)
--- NOTE | 2020-03-24 16:17 | Hospitalist Progress Note ---
Date of Service March 24, 2020 Assessment & Plan (1) COVID-19: Patient with mild symptoms of Covid prior to admission and now asymptomatic Patient presented with fractured fibula and may need surgical intervention Covid testing was completed and patient was positive 03/20/2020 Currently patient is oxygenating well on room air. She has no adventitious breath sounds. She has no fever. Continue supportive care at this time. Do not recommend remdesivir, steroids, or convalescent plasma Patient most likely will need rehab secondary to weakness and fracture (2) HTN (hypertension): Patient states the pain is controlled Continue with home medications including amlodipine and furosemide We will add hydralazine 10 mg p.o. every 6 hours as needed systolic blood pressure greater than 170 Continue to monitor vitals per protocol (3) Fracture of distal end of fibula: This occurred as result of a fall secondary to Parkinson's disease PT OT consult evaluation completed. Rehab is recommended Orthopedics was contacted. At this time they would recommend conservative treatment secondary to her active Covid as she is not a surgical candidate She will be evaluated in the office by Dr. Arnel Fatima in 2 weeks Until that time she should be assist x1 and use a walker. She can do touchdown only of the right toe to assist with transfers. Continue with splint. Okay to continue with splint until seen in the outpatient office Continue to manage pain (4) Weakness: Multifactorial secondary to Parkinson's disease as well as Covid PT/OT consulted Patient will need rehab or custodial at this time Once we have the therapy evaluations, will work with case management to find appropriate placement (5) CKD (chronic kidney disease) stage 3, GFR 30-59 ml/min: Stable Continue to monitor as needed (6) Hypothyroidism: Continue levothyroxine 75 mcg p.o. daily TSH on admission was 2.78 Continue to follow outpatient (7) Parkinsonism: Continue with usual home medications Outpatient follow-up (8) DVT prophylaxis: Not a surgical candidate at this time. Continue enoxaparin 40 mg subcu daily Admission and Anticipated Discharge Date Admission Date: March 23, 2020 Subjective Attending: Dr. Oscar Jackson Patient seen and examined at bedside. She is pleasant. She states the pain is generally controlled to her right ankle. She has no shortness of breath. She has no fever. She has no cough. She denies chest pain or tightness. She denies any diarrhea. She has no new acute complaints. Review of Systems Review of Systems: All systems reviewed & are unremarkable except as noted in Subjective Physical Exam Physical Exam: GENERAL : No acute distress EYES: No icterus, gaze conjugate NOSE: No evidence of epistaxis MOUTH: No lesions or candidiasis NECK: Supple LUNGS: CTA B/L, no wheezes, rales or rhonchi HEART: Regular, rate controlled ABDOMEN: Soft, NT, ND, BS Present EXTREMITIES: No LE edema, pedal pulses intact. Splint in place to right foot and lower leg. Capillary refill less than 5 seconds to the right great toe. Capillary refill of bilateral toes is equal NEURO: A&OX3 Results & Data Results & Data ([facility]) Vital Signs (Past 12 Hours) Vital Signs Temp Pulse Resp BP Pulse Ox Pulse Ox 03/24/20 15:52 37.3 C 100 H 22 180/82 H 93 03/24/20 11:21 37.1 C 98 H 18 172/79 H 92 03/24/20 11:20 93 03/24/20 07:41 37.7 C H 101 H 20 165/80 H 95 03/24/20 04:32 36.9 C 98 H 16 166/76 H 93 Laboratory Results 03/23/20 07:50 03/23/20 07:50 Diagnostic Findings No new diagnostic imaging PG Care Time/CCT Total # of Minutes Spent Total Time Spent with Patient: Total time spent is greater than 50% in coordination of care (as documented) at patient's floor/unit and/or counseling patient:25 minutes including discussion with daughter Coding Level of Care Code 90907 Subseq Hosp Care Lvl 2 Diagnoses COVID-19 U07.1 HTN (hypertension) I10 Fracture of distal end of fibula S82.831A Encounter type: initial encounter Fracture morphology: unspecified fracture morphology Fracture type: closed Laterality: right Weakness R53.1 CKD (chronic kidney disease) stage 3, GFR 30-59 ml/min N18.30 Hypothyroidism E03.9 Parkinsonism G20 DVT prophylaxis Z29.9 Time Spent (min) 25 (1) Fracture of distal end of fibula Encounter type: initial encounter Fracture morphology: unspecified fracture morphology Fracture type: closed Laterality: right Qualified Code(s): S82.831A - Other fracture of upper and lower end of right fibula, initial encounter for closed fracture
[2020-03-24] MEDS: hydrALAZINE 10 MG TAB PO PRN (17:41)
[2020-03-24] MEDS: CYANOCOBALAMIN 500 MCG TABLET (VITAMIN B-12) PO SCH (21:39)
[2020-03-24] MEDS: ENOXAPARIN INJ 40 MG/0.4 ML SYR SQ SCH (21:39)
[2020-03-24] MEDS: CETIRIZINE HCL 10 MG TABLET PO SCH (21:40)
[2020-03-24] MEDS: LACTATED RINGER'S 1,000 ML IV SCH (23:28)
[2020-03-25] MEDS: LEVOTHYROXINE SODIUM 75 MCG TABLET PO SCH (05:50)
[2020-03-25 08:34] LABS: Creatinine Clr Calc Pharmacy 43.1 ml/min; Est GFR (Non-African American) 58.7
[2020-03-25] MEDS: FUROSEMIDE 20 MG TAB PO SCH (08:42)
[2020-03-25] MEDS: MELOXICAM 7.5 MG TAB PO SCH (08:42)
[2020-03-25] MEDS: DULoxetine HCL 30 MG CAP PO SCH (08:42)
[2020-03-25] MEDS: busPIRone 5 MG TAB PO SCH ×2 (08:43→22:19)
[2020-03-25] MEDS: GABAPENTIN 100 MG CAP PO SCH (08:43)
[2020-03-25] MEDS: CARBIDOPA/LEVODOPA 25/100MG TAB PO SCH ×4 (08:43→22:20)
[2020-03-25] MEDS: amLODIPine BESYLATE 5 MG TAB PO SCH (08:43)
[2020-03-25] MEDS: DONEPEZIL HCL 5 MG TAB PO SCH (08:43)
[2020-03-25] MEDS: LACTATED RINGER'S 1,000 ML IV SCH ×2 (10:23→23:42)
--- NOTE | 2020-03-25 15:11 | Hospitalist Progress Note ---
Date of Service March 25, 2020 Assessment & Plan (1) COVID-19: SARS-COV2 positive No hypoxia to warrant use of dexamethasone, remdesivir or convalescent plasma remains stable on room air today (2) HTN (hypertension): Continue Lasix 20 mg p.o. every morning, amlodipine 5 mg p.o. every morning BP stable (3) Fracture of distal end of fibula: This occurred as result of a fall secondary to Parkinson's disease PT OT consult evaluation completed. Rehab is recommended Orthopedics was contacted. At this time they would recommend conservative treatment secondary to her active Covid as she is not a surgical candidate She will be evaluated in the office by Dr. Arnel Fatima in 2 weeks Until that time she should be assist x1 and use a walker. She can do touchdown only of the right toe to assist with transfers. Continue with splint. Okay to continue with splint until seen in the outpatient office Continue to manage pain hoping for rehab early this week (4) Weakness: Multifactorial secondary to Parkinson's disease as well as Covid PT/OT consulted Patient will need rehab or prison at this time Once we have the therapy evaluations, will work with case management to find appropriate placement (5) CKD (chronic kidney disease) stage 3, GFR 30-59 ml/min: Stable Continue to monitor as needed (6) Hypothyroidism: TSH 2.78 Continue levothyroxine 75 mcg p.o. daily (7) Parkinsonism: Continue with usual home medications Outpatient follow-up (8) DVT prophylaxis: Lovenox 40 mg SQ QPM Admission and Anticipated Discharge Date Admission Date: March 23, 2020 Subjective patient pleasant, no acute issues RN asked if we can remove the borrego, I agreed, will try pure wick vital stable, on room air, Cr normal working on placement Review of Systems Review of Systems: All systems reviewed & are unremarkable except as noted in Subjective Physical Exam Constitutional: WD/WN, vitals as above Neck: trachea midline, no thyromegaly Respiratory: normal respiratory effort, lungs clear to auscultation Cardiovascular: RRR, no murmur, no edema Gastrointestinal (Abdomen): normal bowel sounds, soft, nontender, no hepatosplenomegaly Musculoskeletal: Head/Neck/Chest: normocephalic, head atraumatic and neck supple Extremities: + limited ROM of extremities and + abnormal strength (generalized weakness) Skin: no rashes, warm and dry Neurologic: normal touch/pain/proprioception, CN's II-XI intact bilaterally and awake; no focal motor deficits Speech / Cognition: normal speech Motor/Sensory: + tremor (upper extremities, worse with movement); no pronator drift Psychiatric: A+Ox3, euthymic affect Lymphatic: no cervical or axillary lymphadenopathy Results & Data Results & Data ([facility]) Vital Signs (Past 12 Hours) Vital Signs Temp Pulse Resp BP Pulse Ox 03/25/20 07:43 36.8 C 103 H 18 168/82 H 92 Laboratory Results Laboratory Results - last 24 hr 03/25/20 06:52 Creatinine 0.89 Est Cr Clr Drug Dosing 43.1 Est GFR ( Amer) 68.0 Est GFR (Non-Af Amer) 58.7 Medications Administered Current Inpatient Medications Acetaminophen (Acetaminophen 325 Mg Tab) 650 mg PO Q4H PRN PRN Reason: pain fever Stop: 04/22/20 19:43 Last Admin: 03/23/20 20:28 Dose: 650 mg Documented by: Amlodipine Besylate (Amlodipine Besylate 5 Mg Tab) 5 mg PO QAM [facility] Stop: 04/22/20 08:59 Last Admin: 03/25/20 08:43 Dose: 5 mg Documented by: Buspirone HCl (Buspirone 5 Mg Tab) 5 mg PO BID [facility] Stop: 04/21/20 20:59 Last Admin: 03/25/20 08:43 Dose: 5 mg Documented by: Carbidopa/Levodopa (Carbidopa/Levodopa 25/100mg Tab) 1 tab PO QID [facility] Stop: 04/21/20 20:59 Last Admin: 03/25/20 12:19 Dose: 1 tab Documented by: Cetirizine HCl (Cetirizine Hcl 10 Mg Tablet) 5 mg PO PM [facility] Stop: 04/21/20 20:59 Last Admin: 03/24/20 21:40 Dose: 5 mg Documented by: Cyanocobalamin (Cyanocobalamin 500 Mcg Tablet (Vitamin B-12)) 500 mcg PO PM [facility] Stop: 04/21/20 20:59 Last Admin: 03/24/20 21:39 Dose: 500 mcg Documented by: Donepezil HCl (Donepezil Hcl 5 Mg Tab) 5 mg PO QAM [facility] Stop: 04/22/20 08:59 Last Admin: 12/12/20 08:43 Dose: 5 mg Documented by: Duloxetine HCl (Duloxetine Hcl 30 Mg Cap) 30 mg PO QAM [facility] Stop: 04/22/20 08:59 Last Admin: 03/25/20 08:42 Dose: 30 mg Documented by: Enoxaparin Sodium (Enoxaparin Inj 40 Mg/0.4 Ml Syr) 40 mg SQ QPM [facility] Stop: 04/21/20 20:59 Last Admin: 03/24/20 21:39 Dose: 40 mg Documented by: Fluticasone Propionate (Fluticasone Propionate Na Spr 16 Gm Btl) 1 sprays SUBHASH DAILY PRN PRN Reason: seasonal allergies Stop: 04/21/20 19:57 [facility]urosemide ([facility] 20 Mg Tab) [facility] Stop: 04/22/20 08:59 Last Admin: 03/25/20 08:42 Dose: 20 mg Documented by: Gabapentin (Gabapentin 100 Mg Cap) 100 mg PO DAILY [facility] Stop: 04/22/20 08:59 Last Admin: 03/25/20 08:43 Dose: 100 mg Documented by: Hydralazine HCl (Hydralazine 10 Mg Tab) 10 mg PO Q6H PRN PRN Reason: Blood Pressure - High Stop: 04/23/20 16:14 Last Admin: 03/24/20 17:41 Dose: 10 mg Documented by: Lactated Ringer's (Lr) 1,000 mls @ 80 mls/hr IV .[id number] [facility] Stop: 04/23/20 23:14 Last Infusion: 03/25/20 15:11 Dose: 80 mls/hr Documented by: Levothyroxine Sodium (Levothyroxine Sodium 75 Mcg Tablet) 75 mcg PO DAILYBB [facility] Stop: 04/22/20 06:29 Last Admin: 03/25/20 05:50 Dose: 75 mcg Documented by: Meclizine HCl (Meclizine Hcl 25 Mg Tab) 25 mg PO TID PRN PRN Reason: dizziness Stop: 04/21/20 20:08 Meloxicam (Meloxicam 7.5 Mg Tab) [facility] [place] Stop: 04/22/20 08:59 Last Admin: 03/25/20 08:42 Dose: 7.5 mg Documented by: PG Care Time/CCT Total # of Minutes Spent Total Time Spent with Patient: Total time spent is greater than 50% in c oordination of care (as documented) at patient's floor/unit and/or counseling patient: Coding Level of Care Code 56383 Subseq Hosp Care Lvl 2 Diagnoses COVID-19 U07.1 HTN (hypertension) I10 Fracture of distal end of fibula S82.831A Encounter type: initial encounter Fracture morphology: unspecified fracture morphology Fracture type: closed Laterality: right Weakness R53.1 CKD (chronic kidney disease) stage 3, GFR 30-59 ml/min N18.30 Hypothyroidism E03.9 Parkinsonism G20 DVT prophylaxis Z29.9 (1) Fracture of distal end of fibula Encounter type: initial encounter Fracture morphology: unspecified fracture morphology Fracture type: closed Laterality: right Qualified Code(s): S82.831A - Other fracture of upper and lower end of right fibula, initial encounter for closed fracture
[2020-03-25] MEDS: ACETAMINOPHEN 325 MG TAB PO PRN (16:09)
[2020-03-25] MEDS: CYANOCOBALAMIN 500 MCG TABLET (VITAMIN B-12) PO SCH (22:19)
[2020-03-25] MEDS: CETIRIZINE HCL 10 MG TABLET PO SCH (22:19)
[2020-03-25] MEDS: ENOXAPARIN INJ 40 MG/0.4 ML SYR SQ SCH (22:20)
[2020-03-26] MEDS: LEVOTHYROXINE SODIUM 75 MCG TABLET PO SCH (06:30)
[2020-03-26] MEDS: DONEPEZIL HCL 5 MG TAB PO SCH (10:15)
[2020-03-26] MEDS: DULoxetine HCL 30 MG CAP PO SCH (10:16)
[2020-03-26] MEDS: FUROSEMIDE 20 MG TAB PO SCH (10:16)
[2020-03-26] MEDS: busPIRone 5 MG TAB PO SCH ×2 (10:16→20:12)
[2020-03-26] MEDS: MELOXICAM 7.5 MG TAB PO SCH (10:17)
[2020-03-26] MEDS: GABAPENTIN 100 MG CAP PO SCH (10:17)
[2020-03-26] MEDS: amLODIPine BESYLATE 5 MG TAB PO SCH (10:18)
[2020-03-26] MEDS: CARBIDOPA/LEVODOPA 25/100MG TAB PO SCH ×4 (10:18→20:11)
[2020-03-26] MEDS: LACTATED RINGER'S 1,000 ML IV SCH (14:21)
--- NOTE | 2020-03-26 14:55 | Hospitalist Progress Note ---
Date of Service March 26, 2020 Assessment & Plan (1) COVID-19: SARS-COV2 positive No hypoxia to warrant use of dexamethasone, remdesivir or convalescent plasma remains stable on room air for several days (2) HTN (hypertension): Continue Lasix 20 mg p.o. every morning, amlodipine 5 mg p.o. every morning BP stable (3) Fracture of distal end of fibula: This occurred as result of a fall secondary to Parkinson's disease PT OT consult evaluation completed. Rehab is recommended Orthopedics was contacted. At this time they would recommend conservative treatment secondary to her active Covid as she is not a surgical candidate She will be evaluated in the office by Dr. Arnel Fatima in 2 weeks Until that time she should be assist x1 and use a walker. She can do touchdown only of the right toe to assist with transfers. Continue with splint. Okay to continue with splint until seen in the outpatient office Continue to manage pain hoping for rehab early this week, CM working on it (4) Weakness: Multifactorial secondary to Parkinson's disease as well as Covid PT/OT consulted Patient will need rehab or long term at this time Once we have the therapy evaluations, will work with case management to find appropriate placement (5) CKD (chronic kidney disease) stage 3, GFR 30-59 ml/min: Stable Continue to monitor as needed (6) Hypothyroidism: TSH 2.78 Continue levothyroxine 75 mcg p.o. daily (7) Parkinsonism: Continue with usual home medications Outpatient follow-up (8) DVT prophylaxis: Lovenox 40 mg SQ QPM Admission and Anticipated Discharge Date Admission Date: March 23, 2020 Subjective patient is doing okay, sat in a chair most of the morning, was tired and wanted to get back in bed appetite is not great, did not want breakfast breathing is at baseline discussed with CM, working on placement this week Review of Systems Review of Systems: All systems reviewed & are unremarkable except as noted in Subjective Constitutional: + fatigue and + weakness; no fever Respiratory: no cough and no dyspnea Cardiovascular: no chest pain and no edema Musculoskeletal: + joint pain (leg pain with fracture) Neurologic: + tremor(s) (resting, bilateral) Physical Exam Constitutional: WD/WN, vitals as above Neck: trachea midline, no thyromegaly Respiratory: normal respiratory effort, lungs clear to auscultation Cardiovascular: RRR, no murmur, no edema Gastrointestinal (Abdomen): normal bowel sounds, soft, nontender, no hepatosplenomegaly Musculoskeletal: Head/Neck/Chest: normocephalic, head atraumatic and neck supple Extremities: + limited ROM of extremities and + abnormal strength (generalized weakness) Skin: no rashes, warm and dry Neurologic: normal touch/pain/proprioception, CN's II-XI intact bilaterally and awake; no focal motor deficits Speech / Cognition: normal speech Motor/Sensory: + tremor (upper extremities, worse with movement); no pronator drift Psychiatric: A+Ox3, euthymic affect Lymphatic: no cervical or axillary lymphadenopathy Results & Data Results & Data ([facility]) Vital Signs (Past 12 Hours) Vital Signs Temp Pulse Resp BP Pulse Ox 03/26/20 08:23 36.7 C 97 H 18 165/94 H 93 Medications Administered Current Inpatient Medications Acetaminophen (Acetaminophen 325 Mg Tab) 650 mg PO Q4H PRN PRN Reason: pain fever Stop: 04/22/20 19:43 Last Admin: 03/25/20 16:09 Dose: 650 mg Documented by: Amlodipine Besylate (Amlodipine Besylate 5 Mg Tab) 5 mg PO QAM BRYAN Stop: 04/22/20 08:59 Last Admin: 03/26/20 10:18 Dose: 5 mg Documented by: Buspirone HCl (Buspirone 5 Mg Tab) 5 mg PO BID [facility] Stop: 04/21/20 20:59 Last Admin: 03/26/20 10:16 Dose: 5 mg Documented by: Carbidopa/Levodopa (Carbidopa/Levodopa 25/100mg Tab) 1 tab PO QID BRYAN Stop: 04/21/20 20:59 Last Admin: 03/26/20 14:21 Dose: 1 tab Documented by: Cetirizine HCl (Cetirizine Hcl 10 Mg Tablet) 5 mg PO PM BRYAN Stop: 04/21/20 20:59 Last Admin: 03/25/20 22:19 Dose: 5 mg Documented by: Cyanocobalamin (Cyanocobalamin 500 Mcg Tablet (Vitamin B-12)) 500 mcg PO PM BRYAN Stop: 04/21/20 20:59 Last Admin: 03/25/20 22:19 Dose: 500 mcg Documented by: Donepezil HCl (Donepezil Hcl 5 Mg Tab) 5 mg PO QAM [facility] Stop: 04/22/20 08:59 Last Admin: 03/26/20 10:15 Dose: 5 mg Documented by: Duloxetine HCl (Duloxetine Hcl 30 Mg Cap) 30 mg PO QAM [facility] Stop: 04/22/20 08:59 Last Admin: 03/26/20 10:16 Dose: 30 mg Documented by: Enoxaparin Sodium (Enoxaparin Inj 40 Mg/0.4 Ml Syr) 40 mg SQ QPM [facility] Stop: 04/21/20 20:59 Last Admin: 03/25/20 22:20 Dose: 40 mg Documented by: Fluticasone Propionate (Fluticasone Propionate Na Spr 16 Gm Btl) 1 sprays SUBHASH DAILY PRN PRN Reason: seasonal allergies Stop: 04/21/20 19:57 Furosemide ([facility] 20 Mg Tab) [facility] Stop: 04/22/20 08:59 Last Admin: 03/26/20 10:16 Dose: 20 mg Documented by: Gabapentin (Gabapentin 100 Mg Cap) 100 mg PO DAILY [facility] Stop: 04/22/20 08:59 Last Admin: 03/26/20 10:17 Dose: 100 mg Documented by: Hydralazine HCl (Hydralazine 10 Mg Tab) 10 mg PO Q6H PRN PRN Reason: Blood Pressure - High Stop: 04/23/20 16:14 Last Admin: 03/24/20 17:41 Dose: 10 mg Documented by: Lactated Ringer's (Lr) 1,000 mls @ 80 mls/hr IV .[id number] [facility] Stop: 04/23/20 23:14 Last Admin: 03/26/20 14:21 Dose: 80 mls/hr Documented by: Levothyroxine Sodium (Levothyroxine Sodium 75 Mcg Tablet) 75 mcg PO DAILYBB [facility] Stop: 04/22/20 06:29 Last Admin: 03/26/20 06:30 Dose: 75 mcg Documented by: Meclizine HCl (Meclizine Hcl 25 Mg Tab) 25 mg PO TID PRN PRN Reason: dizziness Stop: 04/21/20 20:08 Meloxicam (Meloxicam 7.5 Mg Tab) [facility] Stop: 04/22/20 08:59 Last Admin: 03/26/20 10:17 Dose: 7.5 mg Documented by: PG Care Time/CCT Total # of Minutes Spent Total Time Spent with Patient: Total time spent is greater than 50% in coordination of care (as documented) at patient's floor/unit and/or counseling patient: Coding Level of Care Code 64361 Subseq Hosp Care Lvl 2 Diagnoses COVID-19 U07.1 HTN (hypertension) I10 Fracture of distal end of fibula S82.831A Encounter type: initial encounter Fracture morphology: unspecified fracture morphology Fracture type: closed Laterality: right Weakness R53.1 CKD (chronic kidney disease) stage 3, GFR 30-59 ml/min N18.30 Hypothyroidism E03.9 Parkinsonism G20 DVT prophylaxis Z29.9 (1) Fracture of distal end of fibula Encounter type: initial encounter Fracture morphology: unspecified fracture morphology Fracture type: closed Laterality: right Qualified Code(s): S82.831A - Other fracture of upper and lower end of right fibula, initial encounter for closed fracture
[2020-03-26] MEDS: ENOXAPARIN INJ 40 MG/0.4 ML SYR SQ SCH (20:11)
[2020-03-26] MEDS: CYANOCOBALAMIN 500 MCG TABLET (VITAMIN B-12) PO SCH (20:11)
[2020-03-26] MEDS: CETIRIZINE HCL 10 MG TABLET PO SCH (20:11)
[2020-03-27] MEDS: LACTATED RINGER'S 1,000 ML IV SCH ×2 (01:45→13:48)
[2020-03-27] MEDS: LEVOTHYROXINE SODIUM 75 MCG TABLET PO SCH (05:18)
[2020-03-27] MEDS: GABAPENTIN 100 MG CAP PO SCH (09:54)
[2020-03-27] MEDS: DONEPEZIL HCL 5 MG TAB PO SCH (09:54)
[2020-03-27] MEDS: amLODIPine BESYLATE 5 MG TAB PO SCH (09:54)
[2020-03-27] MEDS: busPIRone 5 MG TAB PO SCH ×2 (09:55→20:59)
[2020-03-27] MEDS: DULoxetine HCL 30 MG CAP PO SCH (09:55)
[2020-03-27] MEDS: MELOXICAM 7.5 MG TAB PO SCH (09:55)
[2020-03-27] MEDS: FUROSEMIDE 20 MG TAB PO SCH (09:56)
[2020-03-27] MEDS: CARBIDOPA/LEVODOPA 25/100MG TAB PO SCH ×4 (09:56→20:59)
[2020-03-27] MEDS: hydrALAZINE 10 MG TAB PO PRN (09:56)
[2020-03-27] MEDS ORDERED: ONDANSETRON INJ 2 MG/ML 2 ML VIAL IV PRN (17:08)
--- NOTE | 2020-03-27 18:04 | Hospitalist Progress Note ---
Date of Service March 27, 2020 Assessment & Plan (1) COVID-19: Patient with mild symptoms of Covid prior to admission and now asymptomatic Patient presented with fractured fibula and may need surgical intervention Covid testing was completed and patient was positive 03/20/2020 Currently patient is oxygenating well on room air. She has no adventitious breath sounds. She has no fever. Continue supportive care at this time. Do not recommend remdesivir, steroids, or convalescent plasma (2) HTN (hypertension): Patient states the pain is controlled Continue with home medications including amlodipine and furosemide Continue hydralazine 10 mg p.o. every 6 hours as needed systolic blood pressure greater than 170 Continue to monitor vitals per protocol (3) Fracture of distal end of fibula: This occurred as result of a fall secondary to Parkinson's disease PT OT consult evaluation completed. Rehab is recommended Orthopedics was contacted. At this time they would recommend conservative treatment secondary to her active Covid as she is not a surgical candidate She will be evaluated in the office by Dr. Arnel Fatima in 2 weeks Until that time she should be assist x1 and use a walker. She can do touchdown only of the right toe to assist with transfers. Continue with splint. Okay to continue with splint until seen in the outpatient office Continue to manage pain Anticipate transfer to rehab center on , 03/30/2020 (4) Weakness: Multifactorial secondary to Parkinson's disease as well as Covid PT/OT consulted Patient will need rehab. Anticipated discharge 03/30/2020 (5) CKD (chronic kidney disease) stage 3, GFR 30-59 ml/min: Stable Continue to monitor as needed (6) Hypothyroidism: Continue levothyroxine 75 mcg p.o. daily TSH on admission was 2.78 Continue to follow outpatient (7) Parkinsonism: Continue with usual home medications Outpatient follow-up (8) DVT prophylaxis: Not a surgical candidate at this time. Continue enoxaparin 40 mg subcu daily Admission and Anticipated Discharge Date Admission Date: March 23, 2020 Supervising Physician Co-Signing Physician Notes REGINA Supervision Note: I did not personally see or examine the patient today, but I verified all rodriguez points of REGINA Carney's assessment and plan with the following exceptions/additions: RN reported to me later in the day that the patient was having some nausea. I ordered her Zofran. Also, I discontinued her IV fluids as she did not need them and she had been taking furosemide to keep fluid off. Otherwise, continue current care, no treatment needed for Covid at this point in time. Her pulse ox is occasionally less than 94% but is not consistent and she does not require oxygen. CT abdomen/pelvis does show multifocal pneumonia at the bases of the lungs The nausea may be related to the Covid. Subjective Attending: Dr. Daja Moser Is an 84-year-old female had a fall at home and ended up with a fractured tibial of the right leg. She was incidentally found to be positive for COVID-19 on 03/20/2020. She did not require any care for the COVID-19. She is remained on room air with no respiratory distress. She did not receive any remdesivir, steroids, convalescent plasma. Regarding her fibular fracture, she states that pain is relatively well controlled. Case was discussed with orthopedics who recommend leaving her in the splint that was placed in the ED and having to go to rehab. They will see the patient in 2 weeks in the office. Patient currently has no acute complaints. She has no shortness of breath. Pain is generally controlled. She states she has no fever or chills. No nausea or vomiting. No diarrhea. Review of Systems Review of Systems: All systems reviewed & are unremarkable except as noted in Subjective Physical Exam Physical Exam: GENERAL : No acute distress. Pleasant talkative EYES: No icterus, gaze conjugate NOSE: No evidence of epistaxis MOUTH: No lesions or candidiasis NECK: Supple LUNGS: CTA B/L, no wheezes, rales or rhonchi HEART: Regular, rate controlled ABDOMEN: Soft, NT, ND, BS Present EXTREMITIES: No LE edema, pedal pulses intact and equal bilaterally. Patient does have good capillary refill of the right great toe at less than 2 seconds. Splint is in place with bulky dressing to right lower extremity. NEURO: A&OX3 today. Patient follows commands. She has good sensation of the toes of both feet. Results & Data Results & Data ([facility]) Vital Signs (Past 12 Hours) Vital Signs Temp Pulse Resp BP BP Pulse Ox 03/27/20 15:31 36.4 C L 92 H 18 144/83 H 92 03/27/20 08:12 36.5 C 91 H 28 H 164/89 H 94 Laboratory Results No new laboratory results Diagnostic Findings No new diagnostic imaging PG Care Time/CCT Total # of Minutes Spent Total Time Spent with Patient: Total time spent is greater than 50% in coordination of care (as documented) at patient's floor/unit and/or counseling patient:20 minutes Coding Level of Care Code 98007 Subseq Hosp Care Lvl 2 Diagnoses COVID-19 U07.1 HTN (hypertension) I10 Fracture of distal end of fibula S82.831A Encounter type: initial encounter Fracture morphology: unspecified fracture morphology Fracture type: closed Laterality: right Weakness R53.1 CKD (chronic kidney disease) stage 3, GFR 30-59 ml/min N18.30 Hypothyroidism E03.9 Parkinsonism G20 DVT prophylaxis Z29.9 Time Spent (min) 20 (1) Fracture of distal end of fibula Encounter type: initial encounter Fracture morphology: unspecified fracture morphology Fracture type: closed Laterality: right Qualified Code(s): S82 .831A - Other fracture of upper and lower end of right fibula, initial encounter for closed fracture
[2020-03-27] MEDS: ENOXAPARIN INJ 40 MG/0.4 ML SYR SQ SCH (20:59)
[2020-03-27] MEDS: CYANOCOBALAMIN 500 MCG TABLET (VITAMIN B-12) PO SCH (20:59)
[2020-03-27] MEDS: CETIRIZINE HCL 10 MG TABLET PO SCH (20:59)
[2020-03-28] MEDS: LEVOTHYROXINE SODIUM 75 MCG TABLET PO SCH (05:30)
[2020-03-28 08:54] LABS: Creatinine Clr Calc Pharmacy 47.4 ml/min; Est GFR (African American) 76.2; Est GFR (Non-African American) 65.8
[2020-03-28] MEDS: CARBIDOPA/LEVODOPA 25/100MG TAB PO SCH ×3 (09:45→17:00)
[2020-03-28] MEDS: busPIRone 5 MG TAB PO SCH (09:45)
[2020-03-28] MEDS: MELOXICAM 7.5 MG TAB PO SCH (09:46)
[2020-03-28] MEDS: DONEPEZIL HCL 5 MG TAB PO SCH (09:46)
[2020-03-28] MEDS: amLODIPine BESYLATE 5 MG TAB PO SCH (09:46)
[2020-03-28] MEDS: GABAPENTIN 100 MG CAP PO SCH (09:46)
[2020-03-28] MEDS: FUROSEMIDE 20 MG TAB PO SCH (09:47)
[2020-03-28] MEDS: DULoxetine HCL 30 MG CAP PO SCH (09:47)
--- NOTE | 2020-03-28 10:10 | Hospitalist Progress Note ---
Date of Service March 28, 2020 Assessment & Plan (1) COVID-19: Patient with mild symptoms of Covid prior to admission and now asymptomatic Patient presented with fractured fibula and may need surgical intervention Covid testing was completed and patient was positive 03/20/2020 Currently patient is oxygenating well on room air. She has no adventitious breath sounds. She has no fever. Continue supportive care at this time. Do not recommend remdesivir, steroids, or convalescent plasma as she was not started on any viral treatment plan. (2) HTN (hypertension): Patient states the pain is controlled Continue with home medications including amlodipine and furosemide Continue hydralazine 10 mg p.o. every 6 hours as needed systolic blood pressure greater than 170 Continue to monitor vitals per protocol (3) Fracture of distal end of fibula: This occurred as result of a fall secondary to Parkinson's disease PT OT consult evaluation completed. Rehab is recommended and patient is expected to be discharged to rehab on Orthopedics was contacted. At this time they would recommend conservative treatment secondary to her active Covid as she is not a surgical candidate She will be evaluated in the office by Dr. Arnel Fatima in 2 weeks Until that time she should be assist x1 and use a walker. She can do touchdown only of the right toe to assist with transfers. Continue with splint. Okay to continue with splint until seen in the outpatient office Continue to manage pain Anticipate transfer to rehab center on , 03/30/2020 (4) Weakness: Multifactorial secondary to Parkinson's disease as well as Covid PT/OT consulted Patient will need rehab. Anticipated discharge 03/30/2020 (5) CKD (chronic kidney disease) stage 3, GFR 30-59 ml/min: Stable. Creatinine is 0.81 Continue to monitor as needed (6) Hypothyroidism: Continue levothyroxine 75 mcg p.o. daily TSH on admission was 2.78 Continue to follow outpatient (7) Parkinsonism: Continue with usual home medications Outpatient follow-up (8) DVT prophylaxis: Not a surgical candidate at this time. Continue enoxaparin 40 mg subcu daily Admission and Anticipated Discharge Date Admission Date: March 23, 2020 Supervising Physician Co-Signing Physician Notes PA Supervision Note: I personally saw and examined the patient. I verified all rodriguez points and agree with REGINA Carney with the following exceptions and/or additions: see discharge summary same DOS Subjective Attending: Dr. Daja Moser Patient seen and examined at bedside in room 3 191. She was doing well but needed supervised feeding and would not eat her food as she was not hungry. She denies any fever, chills, sweats. She continues to do well on room air. She has no abdominal pain. She has no nausea or vomiting. She denies any diarrhea. Pain is generally controlled in her right ankle. She has no other acute complaints today. Review of Systems Review of Systems: All systems reviewed & are unremarkable except as noted in Subjective Physical Exam Physical Exam: GENERAL : No acute distress. Pleasant talkative EYES: No icterus, gaze conjugate NOSE: No evidence of epistaxis MOUTH: No lesions or candidiasis NECK: Supple LUNGS: CTA B/L, no wheezes, rales or rhonchi HEART: Regular, rate controlled ABDOMEN: Soft, NT, ND, BS Present EXTREMITIES: No LE edema, pedal pulses intact. Splint on right lower extremity. Good sensation in bilateral toes. Able to move toes and ankles. NEURO: A&OX3 Results & Data Results & Data ([facility]) Vital Signs (Past 12 Hours) Vital Signs Temp Pulse Resp BP BP Pulse Ox 03/28/20 08:08 36.7 C 85 18 164/85 H 91 03/27/20 23:45 36.8 C 89 20 166/81 H 93 Laboratory Results 03/23/20 07:50 03/28/20 07:50 Diagnostic Findings No further diagnostic imaging PG Care Time/CCT Total # of Minutes Spent Total Time Spent with Patient: Total time spent is greater than 50% in coordination of care (as documented) at patient's floor/unit and/or counseling patient: 15 minutes Coding Level of Care Code None Diagnoses COVID-19 U07.1 HTN (hypertension) I10 Fracture of distal end of fibula S82.831A Encounter type: initial encounter Fracture morphology: unspecified fracture morphology Fracture type: closed Laterality: right Weakness R53.1 CKD (chronic kidney disease) stage 3, GFR 30-59 ml/min N18.30 Hypothyroidism E03.9 Parkinsonism G20 DVT prophylaxis Z29.9 Time Spent (min) 15 (1) Fracture of distal end of fibula Encounter type: initial encounter Fracture morphology: unspecified fracture morphology Fracture type: closed Laterality: right Qualified Code(s): S82.831A - Other fracture of upper and lower end of right fibula, initial encounter for closed fracture
[2020-03-28] MEDS: ACETAMINOPHEN 325 MG TAB PO PRN ×2 (10:52→19:22)
--- NOTE | 2020-03-28 12:10 | Discharge Summary ---
Date of Service March 28, 2020 Admission HPI Per Admitting Provider Venessa Millard is an 84-year-old female with Parkinson's who presents to the ER with right ankle pain and recurrent falls. The patient was unable to give me any history regarding recent events. She reports she was in hospital sometime ago and she has had ankle when slipping off the toilet. She was recently hospitalized from March 05 to March 06, 2020 due to a lower GI bleed. At that time she slipped off the toilet and had right ankle pain. Initial x-ray did not show any fracture however the it has continued to be painful since. She was discharged home the following day but reportedly has been falling on multiple occasions. Per her family member she recently tested positive for COVID-19 but she reports being asymptomatic with this. ER contacted her family member Susi who reported she thinks the patient contracted coronavirus from a physical therapist at home. She has been falling on multiple occasions, confusion, poor oral intake and increasing fatigue where she feels the patient is no longer safe to be at home. SARS-CoV-2 positive test on March 20. In the ER, ankle x-ray showed minimally displaced fracture of the distal fibula metaphysis. She was referred to medicine for admission and ongoing management of Covid, falls, confusion. Admission Exam Per Admitting Provider Constitutional: well developed; + not well nourished and no acute distress Eyes: + anicteric sclerae; normal pupil size ENMT: external ear and nose normal, oropharynx normal Neck: trachea midline Respiratory: normal respiratory effort, lungs clear to auscultation Cardiovascular: Rate/Rhythm: regular rate and regular rhythm Heart Sounds: no murmur Extremities: normal capillary refill Gastrointestinal (Abdomen): normal bowel sounds, soft, nontender, no hepatosplenomegaly Musculoskeletal: Ankle: no deformity and no skin erythema Lateral right ankle tender to palpation Skin: no rashes, warm and dry Neurologic: moves all extremities (No cogwheel rigidity), awake and + confused Psychiatric: Orientation: alert, oriented to person, oriented to place and oriented to time Eye Contact: good eye contact Genitourinary: no CVA tenderness Principal Diagnosis COVID-19 diagnosed 03/20/2020 Distal right fibular fracture Discharge Exam GENERAL : No acute distress. Pleasant talkative EYES: No icterus, gaze conjugate NOSE: No evidence of epistaxis MOUTH: No lesions or candidiasis NECK: Supple LUNGS: CTA B/L, no wheezes, rales or rhonchi HEART: Regular, rate controlled ABDOMEN: Soft, NT, ND, BS Present EXTREMITIES: No LE edema, pedal pulses intact. Splint on right lower extremity. Good sensation in bilateral toes. Able to move toes and ankles. NEURO: A&OX3 Discharge Data Allergies Allergy/AdvReac Type Severity Reaction Status Date / Time aspirin AdvReac Severe RASH Unverified 03/05/20 15:00 Consultations 03/22/20 14:26 ED Decision to Admit Stat Ordered Studies XR ankle RT min 3V routine 03/22/2020 HISTORY: 84 years-old Female pain acute right ankle pain status post fall COMPARISON: 03/05/2020 TECHNIQUE: 3 views of the right ankle FINDINGS: Mildly demineralized appearance of the bones. Unchanged 4 mm corticated ossification adjacent to the medial malleolus suggestive of accessory ossicle versus remote fracture fragment. There is an acute obliquely oriented fracture of the distal fibular metaphysis superior to the level of the tibial plafond with 2 mm lateral displacement. Fracture extends into the distal tibiofibular syndesmosis. No osteochondral defect. Mild circumferential soft tissue swelling of the ankle. Moderate sized enthesophytes of the calcaneus with moderate midfoot osteoarthritis. IMPRESSION: Acute minimally displaced fracture of the distal fibular metaphysis. Electronically signed by: Fernandez Arias M.D. 03/22/2020 1:44 PM 03/22/20 13:03 CT head/brain wo con Stat 03/22/20 13:35 CT abd pelvis wo con Stat Hospital Course (1) COVID-19: Patient with mild symptoms of Covid prior to admission and now asymptomatic Patient presented with fractured fibula and may need surgical intervention Covid testing was completed and patient was positive 03/20/2020 Currently patient is oxygenating well on room air. She has no adventitious breath sounds. She has no fever. Continue supportive care at this time. Do not recommend remdesivir, steroids, or convalescent plasma as she was not started on any viral treatment plan. Has some fatigue and low appetite with this (2) HTN (hypertension): Patient states the pain is controlled Continue with home medications including amlodipine and furosemide Patient also received hydralazine 10 mg p.o. every 6 hours as needed systolic blood pressure greater than 170 Continue to monitor vitals per protocol (3) Fracture of distal end of fibula: This occurred as result of a fall secondary to Parkinson's disease PT OT consult evaluation completed. Rehab is recommended and patient is expected to be discharged to rehab Orthopedics was contacted. At this time they would recommend conservative treatment secondary to her active Covid as she is not a surgical candidate She will be evaluated in the office by Dr. Arnel Fatima in 2 weeks Until that time she should be assist x1 and use a walker. She can do touchdown only of the right toe to assist with transfers. Continue with splint. Okay to continue with splint until seen in the outpatient office Continue to manage pain (4) Weakness: Multifactorial secondary to Parkinson's disease as well as Covid PT/OT consulted Discharge to acute rehab (5) CKD (chronic kidney disease) stage 3, GFR 30-59 ml/min: Stable. Creatinine is 0.81 today Continue to monitor as needed (6) Hypothyroidism: Continue levothyroxine 75 mcg p.o. daily TSH on admission was 2.78 Continue to follow outpatient (7) Parkinsonism: Continue with usual home medications Outpatient follow-up (8) DVT prophylaxis: Patient received enoxaparin 40 mg subcu daily Total Time Total Time Spent Total Time Spent (In Minutes): 40 Total Time Includes: Examination of the Patient, Discharge Planning, Medication Reconciliation and Communication With Other Providers Discharge Plan Discharge Items Patient Disposition: Transfer Nursing Home Fac Reason For Visit: COVID AMS per family Discharge Diagnosis: COVID-19 Right fibular fracture Activity: As commented below Activity Comment: Touchdown only of the right toe to assist with transfers Lifting: Gradually increase as tolerated Bathing: No limitations Exercise/Sports: Wait until after follow-up appointment Driving/Machine Use: No driving Weightbearing: Right toe touch Weightbearing Comment: Assist x1. Use walker. Continue with splint Non-emergency contact: Primary Care Provider Call non-emergency contact if: you have any medication questions and you have a fever Follow-up/Referrals: Asael Fatima, [Surgeon] - 04/04/20 2:00 pm (APPT WITH DR FATIMA; ARRIVE 15 MINUTES PRIOR TO SCHEDULED TIME. PLEASE WEAR A MASK TO APPT.) Roberta Contreras PA-C [Primary Care Provider] - 04/12/20 8:50 am (IF YOU CALL THE OFFICE WITH AN EMAIL THEY WILL GLADLY DO A ZOOM APPT WITH YOU VS YOU GOING INTO OFFICE.) Addtl Attending Provider Instructions: You were admitted after a fall and found to have a right fibular fracture. This should remain in a splint until you are seen by Dr. Asael Fatima of [facility]. If you have any loss of sensation or increased pain to your right foot ankle or lower extremity, call [facility] for an appointment or report to the emergency department. You were also found to be positive with COVID-19. You did not require any oxygen or treatment. You did not receive any remdesivir, supplemental oxygen, steroids, or convalescent plasma. The date that your test was found to be positive for COVID-19 was 03/20/2020. Pending Studies at Discharge: No Stand-Alone Forms: My [facility] Skilled Items Patient informed of condition?: Yes DNR: No Discharge Level of Care: Acute rehab Communicable Disease: Yes Discharge Prognosis: Improving Lines: None Urinary Catheter: No Medications and DC Order Prescriptions: Continued carbidopa-levodopa 25-100 mg tablet 1 tab PO QID 90 Days Qty: 360 RF: 1 duloxetine 30 mg capsule,delayed release(DR/EC) 30 mg PO QAM RF: 0 cyanocobalamin (vitamin B-12) 500 mcg tablet 500 mcg PO PM RF: 0 metoprolol tartrate 100 mg tablet 50 mg PO BID RF: 0 gabapentin 100 mg capsule 100 - 200 mg PO BID RF: 0 buspirone 5 mg tablet 5 mg PO BID RF: 0 fluticasone propionate [Flonase Allergy Relief] 50 mcg/actuation spray,suspension 1 sprays INTNAS DAILY PRN (Reason: seasonal allergies) RF: 0 amlodipine 5 mg tablet 5 mg PO QAM RF: 0 levothyroxine 75 mcg tablet 75 mg PO QAM RF: 0 meloxicam 7.5 mg tablet 7.5 mg PO QAM RF: 0 meclizine 25 mg tablet 25 mg PO TID PRN (Reason: dizziness) Qty: 10 RF: 0 furosemide 40 mg tablet 20 mg PO QAM RF: 0 donepezil 5 mg tablet 5 mg PO QAM RF: 0 cetirizine 10 mg Tablet 5 mg PO PM RF: 0 Discharge Orders: Discharge Order (Routine); Ordered 03/28/20 Ordered By: Ulises Li/Other Patient Handouts: Preventing Falls Making Changes ..., Preventing Falls Make Your Health ... Admission Data Admit Date/Time: 03/23/20 21:26 Attending Provider: Daja Moser Admit Provider: Rebel Mcghee Primary Care Provider: Roberta Contreras Other Providers: Rebel Mcghee ; [facility] ; [facility], Other Interventions: Discharge Summary Assessment (RN) Last Done: 03/28/20 12:40 Supervising Physician Co-Signing Physician Notes PA Supervision Note: I personally saw and examined the patient. I verified all rodriguez points and agree with REGINA Carney with the following exceptions and/or additions: Patient reports low appetite and generally not feeling too well. Is u ncomfortable in the ankle but pain is manageable. She is more alert and interactive today as per nursing. She ate a little bit throughout the day before discharge. Denies chest pain or shortness of breath Vitals reviewed Gen: Frail appearing, NAD HEENT: Anicteric sclerae, EOMI CV: RRR no mgr nl S1S2 Pulm: CTAB no wcr Abd: +BS soft NT ND no masses or hernias Ext: No edema, left lower extremity in splint with Walt wrap from the knee down Skin: No rashes, warm/dry Neuro: Can move all extremities 84-year-old female here with falls, confusion, and fibular fracture, noted to have Covid-19 which is contributing likely to confusion falls and weakness. Fortunately she has no significant pulmonary symptoms. Does have low appetite and malaise from Covid-19 infection. Stable for discharge to rehab facility Continue to encourage p.o. intake and rehab. Follow-up with orthopedics regarding fibular fracture Coding Level of Care Code D/C Day Management >30 mins Diagnoses COVID-19 U07.1 HTN (hypertension) I10 Fracture of distal end of fibula S82.831A Encounter type: initial encounter Fracture morphology: unspecified fracture morphology Fracture type: closed Laterality: right Weakness R53.1 CKD (chronic kidney disease) stage 3, GFR 30-59 ml/min N18.30 Hypothyroidism E03.9 Parkinsonism G20 DVT prophylaxis Z29.9 Time Spent (min) 40
== END 2020-03-28 20:07 | DRG 562 ==
LOC: EDINP 12:17 → ED 12:17 → SUATTDRO 16:46 → EDINP 16:46 → SUATTDRO 03-23 21:26 → 3E 03-23 21:26